=== PATIENT | female | born 1960 | race Caucasian/White ===

== ENCOUNTER 2019-10-31 15:36 | Outpatient (CLI) | payer OTHER, SELFPAY | END 2019-10-31 15:37 | disposition home or self-care (01) | PROVIDERS: PCP Family Medicine | DX: E03.9 Hypothyroidism, unspecified (principal) | CPT/HCPCS: 36415; 84443 ==

== ENCOUNTER 2020-08-06 11:57 | Inpatient (IN) | payer OTHER, SELFPAY ==
[2020-08-06] VITALS (11 sets, daily range): BP systolic 115–162; BP diastolic 59–95; PULSE 72–107; RESP 18–41; TEMP 36.4–38.3; O2SAT 69–94; BMI 43.3
--- NOTE | ~2020-08-06 | XR_ITS ---
XR chest 1V portable 08/13/2020 08:26 Indication: Covid. Hypoxia. Procedure: AP portable chest Comparison: Comparison to multiple prior studies sequentially, with oldest reviewed study date2014. Findings: Heart size normal. Diffuse bilateral airspace disease. No significant change. No significan t effusion or pneumothorax. No acute osseous abnormality. Impression: 1: Stable diffuse bilateral airspace disease which may represent pneumonia or edema. Reviewed, dictated and finalized at location A. N DRIVER Impression: 1: Stable diffuse bilateral airspace disease which may represent pneumonia or e corrine.
--- NOTE | ~2020-08-06 | XR_ITS ---
XR chest 1V portable 08/11/2020 06:14 Indication: Respiratory failure. Procedure: AP portable chest Comparison: 08/08/2019 Findings: Heart size normal. Diffuse bilateral airspace disease unchanged. No pleural effusion or pne umothorax. No acute osseous abnormality. Impression: 1: Diffuse bilateral airspace disease, consistent with pneumonia versus edema. Reviewed, dictated and finalized at location A. SEALER Impression: 1: Diffuse bilateral airspace disease, consistent with pneumonia versus edema.
--- NOTE | ~2020-08-06 | XR_ITS ---
EXAMINATION: XR chest 1V portable EXAM DATE: 08/06/2020 12:48 INDICATION: Shortness of air. TECHNIQUE: Portable AP frontal chest x-ray was obtained. Comparison is made to prior examination from 01/29/2015. FINDINGS: Moderate to large amount of bilateral ill-defined acute airspace disease, most likely COVID pneumonia given community prevalence. Mild cardiomegaly. There is no pneumothorax suspected. There a re no pleural effusions. There are no osseous abnormalities identified. IMPRESSION: Moderate to large amount of acute airspace disease suspicious for COVID pneumonia. Reviewed, dictated and finalized at location B. ER MARKER AXLE IMPRESSION: Moderate to large amount of acute airspace disease suspicious for C OVID pneumonia.
--- NOTE | ~2020-08-06 | XR_ITS ---
EXAMINATION: XR chest 1V portable DATE: 08/08/2020 11:03 INDICATION: COVID positive. Shortness of breath. TECHNIQUE: frontal view of the chest was obtained. COMPARISON: Chest radiograph dated 08/06/2020 FINDINGS: Similar distribution but increasing density of extensive bilateral airspace opacities relatively spar ing the left upper lung zone. No pleural effusion or pneumothorax. Mild cardiomegaly. Surgical clips at the left breast. IMPRESSION: 1. Increase in extensive diffuse bilateral lung disease which is concerning for worsening COVID pneum onia. Differential includes less likely pulmonary edema. 2. Mild cardiomegaly. Reviewed, dictated and finalized at location A. IBILITY COUNSELOR IMPRESSION: 1. Increase in extensive diffuse bilateral lung disease which is concerning for worsening COVID pneumonia. Differential includes less likely pulmonary edema. 2. Mild cardiomegaly.
--- NOTE | ~2020-08-06 | XR_ITS ---
EXAMINATION: XR chest PICC line DATE: 08/14/2020 14:51 INDICATION: Central line placement. COVID-19 pneumonia. TECHNIQUE: A single frontal view of the chest was obtained. COMPARISON: Chest single view 08/13/2020, 08/06/2020 FINDINGS: There are airspace and interstitial opacities throughout the lungs bilaterally with relativ e sparing of left lung apex. No pleural effusion or pneumothorax. The heart size is normal. A right u pper extremity peripherally inserted central venous catheter (PICC) is seen with tip at the superior cavoatrial junction. Surgical clips overlie left breast. IMPRESSION: 1. PICC tip at the superior cavoatrial junction. 2. Stable diffuse lung disease, consistent with pneumonia versus pulmonary edema. Reviewed, dictated and finalized at location A. MECHANIC IMPRESSION: 1. PICC tip at the superior cavoatrial junction. 2. Stable diffuse lung disease, consistent with pneumonia versus pulmonary thao a.
--- NOTE | 2020-08-06 12:21 | ECG_ITS ---
Measurements Intervals [place] Rate: 108 P: 29 NV: 127 QRS: -17 QRSD: 91 T: 23 QT: 298 QTc: 400 Interpretive Statements SINUS TACHYCARDIA INCOMPLETE RIGHT BUNDLE BRANCH BLOCK ANTEROSEPTAL INFARCT, AGE INDETERMINATE BASELINE ARTIFACT- III ABNORMAL ECG Electronically Signed On 08-06-2020 14:30:20 LOOPER OPERATOR by Carlos Gutiérrez D.O.
--- NOTE | 2020-08-06 12:33 | PC.NURSE ---
Patient is left arm limb alert, pink bracelet placed on left arm.
--- NOTE | 2020-08-06 12:36 | ED.SOB ---
HPI - SOB/Dyspnea General Chief Complaint: Shortness of Breath/Dyspnea Stated Complaint: nausea Time Seen by Provider: 08/06/20 12:08 History of Present Illness HPI Narrative: Patient is a 60-year-old female who presents ER with increasing shortness of breath over the last week. Patient reports she went to [facility] and had a Covid swab performed on 08/02/2020. She works in a [employer] unit. Patient is confused and slow to respond. She is oriented x2. She was hypoxic in the 60s and is now on 6 L nasal cannula. She reports she has been having fever and weakness over the last week. She is unsure when the symptoms started. Related Data Home Medications Medication Instructions Recorded Confirmed levothyroxine 75 mcg tablet 75 mcg PO DAILY 01/08/20 08/06/20 esomeprazole magnesium 20 mg 20 mg PO DAILY 07/24/20 08/06/20 capsule,delayed release cholecalciferol (vitamin D3) 1,250 mcg PO WEEKLY 08/06/20 08/06/20 Allergies Allergy/AdvReac Type Severity Reaction Status Date / Time Gadolinium-Containing Allergy Unknown Bradycardia Verified 08/06/20 13:35 Contrast Medi wasps AdvReac Severe Difficulty Uncoded 07/24/20 11:16 Swallowing Review of Systems Review of Systems: ROS unobtainable: Yes unobtainable due to mental status PMFSH Past Medical History Medical History Cancer of left breast Status post lumpectomy. Gastroesophageal reflux disease Hypothyroidism Lichen sclerosus et atrophicus Mitral valve prolapse Surgical History Surgical History History of ankle surgery History of lumpectomy of left breast Family History Family History Father Hypertension Mother Family history of Alzheimer's disease Other Family history of malignant neoplasm of breast Social History Social History Social History: The patient lives alone in [place]. She has no children. 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 She is a former smoker and quit in 2012. She drinks alcohol socially and in moderation. No illicit substance use. She designates her brother Bharat Mancuso as her surrogate decision maker and she wishes to be a full code. Smoking packs per day: 0.5 Smoking cigarettes per day: 10.0 Years smoked: 20 Smoking pack-years: 10.00 Smoking status: Former smoker Smoking end date: 08/08/12 Alcohol intake: current Substance use: never Gender identity (if verbalized by the patient): Female Spiritual care concerns: No Exam Narrative: Exam Narrative: GENERAL: ill-appearing, well-nourished, and in mild distress. HEAD: Normocephalic, atraumatic. EYES: PERRL and EOMI. CHEST: Diffuse crackles with increase respiratory rate. HEART: Tachycardic and regular. Normal peripheral pulses. ABDOMEN: Soft, nontender, nondistended. EXTREMITIES: Normal range of motion. No edema. SKIN: Warm, dry, no rash, mottling in lower extremitites. NEURO: Alert and oriented x2. Course Course Emergency Course: Admit to hospitalist service. Will swab for Covid. Outside records show that patient's Covid swab was canceled. Will start on dexamethasone. Patient may be candidate for remdesivir and hospitalist service will evaluate. Vital Signs Vital signs: Vital Signs Temperature 100.1 F H 08/06/20 12:16 Pulse Rate 106 H 08/06/20 12:16 Respiratory Rate 30 H 08/06/20 12:16 Blood Pressure 118/80 08/06/20 12:16 Pulse Oximetry 69 L 08/06/20 12:16 Temperature 97.7 F 08/08/20 16:00 Pulse Rate 105 H 08/08/20 16:04 Respiratory Rate 25 H 08/08/20 16:04 Blood Pressure 143/78 H 08/08/20 16:00 Pulse Oximetry 97 08/08/20 16:00 MDM - SOB/Dyspnea Lab Data Result diagrams: 08/08/20 09:44 08/08/20 03:27 Labs: Lab Results 1
[2020-08-06 12:43] LABS: Alveolar/Arterial O2 Gradient 221.1 mmHg; Base Excess ABG 0.8 mEq/l (+/-2.0); Carboxyhemoglobin 0.9 % THb (0-2.0); Device NASAL CANNULA; Fractional Inspired Oxygen 44 %; HCO3 ABG 23.7 mEq/l (22.0-26.0); Methemoglobin ABG 0.2 %THb (0-1.5); Modified Allen's Test Pass; Oxygen Content ABG 17.2 %vol (16.0-22.0); Oxygen Saturation ABG 91.1 % (95.0-100.0); Oxyhemoglobin 88.9 % THb (90.0-100.0); PCO2 ABG 32.7 mmHg (35.0-45.0); PO2 ABG 55.3 mmHg (80.0-100.0); PO2 FiO2 Ratio Arterial Blood 1.26 %; Site Drawn LEFT RADIAL; Total Hemoglobin 13.8 g/dL (12.0-18.0); pH ABG 7.478 (7.350-7.450)
[2020-08-06 12:47] LABS: Hemoglobin 14.1 g/dL (12.0-15.0); Immature Granulocyte Absolute 0.02 K/mm3 (0.00-0.031); Immature Granulocyte Percent A 0.4 % (0-0.5); Lymphocytes Absolute Auto 0.71 K/mm3 (0.9-3.2); Lymphocytes Percent Auto 14.9 % (18.3-44.2); Mean Corpuscular HGB Conc 34.4 g/dl (32-36); Mean Corpuscular Hemoglobin 30.9 pg (26-34); Mean Corpuscular Volume 89.9 fl (80-100); Mean Platelet Volume 10.6 fl (7.4-10.4); Monocytes Absolute Auto 0.2 K/mm3 (0.1-0.6); Neutrophils Absolute Auto 3.8 K/mm3 (1.3-6.7); Neutrophils Percent Auto 79.7 % (45.5-73.1); Platelet Count Result 202 k/mm3 (150-375); Red Blood Count 4.56 M/mm3 (4.2-5.4); Red Cell Distribution Width 12.9 % (11.5-14.5); White Blood Count 4.8 K/mm3 (4.5-10.0)
[2020-08-06 12:56] LABS: INR 0.9; Prothrombin Time 12.9 Seconds (11.1-14.7)
[2020-08-06 12:57] LABS: Partial Thromboplastin Time 33.3 SECONDS (22.3-36.8)
[2020-08-06 13:00] LABS: Lactic Acid Reflex 1.4 mmol/L (0.7-2.1)
[2020-08-06 13:10] LABS: Alanine Aminotransferase 27 U/L (4-35); Albumin Level 3.9 g/dL (3.5-5.1); Alkaline Phosphatase 113 U/L (38-126); Anion Gap 10 mmol/L (8-16); Aspartate Amino Transferase 77 U/L (14-36); Bilirubin,Total 0.5 mg/dL (0.2-1.3); Blood Urea Nitrogen 17 mg/dL (7-17); Calcium 8.8 mg/dL (8.4-10.2); Carbon Dioxide 28 mmol/L (22-30); Chloride 96 mmol/L (98-107); Estimated CRCL calculation 62 ml/min; Estimated Glomerular Filt Rate 57; Glucose 111 mg/dL (65-105); Sodium 134 mmol/L (137-145)
[2020-08-06 13:13] LABS: CRP 24.3 mg/dL (<1.0)
[2020-08-06] MEDS: DEXAMETHASONE SOD PHOS INJ 4 MG/ML VIAL 6 MG IV PUSH (13:34)
--- NOTE | 2020-08-06 14:53 | PC.NURSE ---
pt noted to have dry oral cavity and lips, oral care provided. drink given
--- NOTE | 2020-08-06 17:17 | ADMGEN ---
This patient, Julieta Mancuso, was admitted to IMU Room 212-. Patient/family oriented to hospital policies and general routines including ID bracelet, bed and alarms, visiting hours, pain management, procedures, bathroom and other care routines, personal items, smoking policy, room service/diet, and visiting hours. Information on how to activate the Rapid Response Team has been discussed. Patient/Family are encouraged to report perceived risks to care and to ask questions if they do not understand what they are told or what they should do.
--- NOTE | 2020-08-06 18:00 | PM.IMHP ---
H&P: HPI History of Present Illness Date/Time: 08/06/20 18:00 <Jennifer Connelly PA-C - Last Filed: 08/06/20 23:12> Chief Complaint: Shortness of breath. <Jennifer Connelly PA-C - Last Filed: 08/06/20 23:12> Narrative: Julieta Mancuso is a 60-year-old female with hypothyroidism and GERD who presented to the emergency department earlier today via private vehicle from home with complaints of worsening shortness of breath. At the time my evaluation she is a bit confused and slow to respond but from what I can gather she has not been feeling well for at least a week with symptoms to include cough, congestion, shortness of breath, fever, chills, arthralgias, myalgias, headache, nausea, vomiting, and diarrhea. It sounds as though she has been home in bed for many days, not eating much or drinking and taking acetaminophen and ibuprofen for her symptoms. Her brother has been coming to check on her and has encouraged her to come to the hospital last couple of days however she has refused up until today. On arrival to the emergency department her SpO2 was 75% on room air, skin was reportedly mottled, and her chest x-ray showed pretty extensive bilateral lung disease yet she tells me she was not feeling short of breath. 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 She does not believe she has been using adequate PPE as she typically wears just a surgical mass while working at that facility. <Jennifer Connelly PA-C - Last Filed: 08/06/20 23:12> Review of Systems Review of Systems: Narrative: Twelve systems were reviewed and are negative except for as per HPI. <Jennifer Connelly PA-C - Last Filed: 08/06/20 23:12> [facility] Past Medical History Medical History: Medical History Cancer of left breast Status post lumpectomy. Gastroesophageal reflux disease Hypothyroidism Lichen sclerosus et atrophicus Mitral valve prolapse <GISSELL [place] Last Filed: 08/06/20 23:12> Surgical History Surgical History: Surgical History History of ankle surgery History of lumpectomy of left breast <Jennifer Connelly PA-C - Last Filed: 08/06/20 23:12> Family History Family History: Family History Father Hypertension Mother Family history of Alzheimer's disease Other Family history of malignant neoplasm of breast <Jennifer Connelly PA-C - Last Filed: 08/06/20 23:12> Social History Social History: Social History Social History: The patient lives alone in [place]. She has no children. 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 She is a former smoker and quit in 2012. She drinks alcohol socially and in moderation. No illicit substance use. She designates her brother Bharat Mancuso as her surrogate decision maker and she wishes to be a full code. Smoking packs per day: 0.5 Smoking cigarettes per day: 10.0 Years smoked: 20 Smoking pack-years: 10.00 Smoking status: Former smoker Smoking end date: 08/08/12 Alcohol intake: current Substance use: never Gender identity (if verbalized by the patient): Female Spiritual care concerns: No <Jennifer Connelly PA-C - Last Filed: 08/06/20 23:12> Meds Home Medications and Allergies Home medications: Home Medications Medication Instructions Recorded Confirmed Type levothyroxine 75 mcg tablet 75 mcg PO DAILY 01/08/20 08/06/20 History esomeprazole magnesium 20 mg 20 mg PO DAILY 07/24/20 08/06/20 History capsule,delayed release triamcinolone acetonide 0.5 % 1 applic TOPICAL BID PRN #15 g 07/24/20 08/06/20 Rx topical ointment cholecalciferol (vitamin D3) 1,250 mcg PO WEEKLY 1
[2020-08-06 22:09] LABS: SARS-CoV-2 RNA PCR Positive
--- NOTE | 2020-08-06 23:12 | P.PNCROSS_ITS ---
Event Note Event Note Event Note: Positive for COVID-19. Antibiotics have been discontinued. Contin ue dexamethasone. Begin remdesivir.
[2020-08-06 23:27] LABS: Alanine Aminotransferase 27 U/L (4-35); Creatine Kinase 621 U/L (30-135)
[2020-08-06] MEDS: REMDESIVIR 200 MG/NS 250 ML 200 MG/250 ML BAG 250 MG IVPB (23:56)
[2020-08-07] VITALS (24 sets, daily range): BP systolic 131–150; BP diastolic 68–83; PULSE 66–86; RESP 20–24; TEMP 36.5–36.9; O2SAT 22–100
[2020-08-07] MEDS: ALBUTEROL SULFATE NEB 2.5 MG/0.5 ML INH INHALATION ×6 (00:59→21:11)
[2020-08-07] MEDS: IPRATROPIUM BR 0.02% INH SOLN 0.5 MG/2.5 ML VIAL INHALATION ×5 (04:23→21:11)
--- NOTE | 2020-08-07 05:19 | PC.NURSE ---
PATIENT WAS IN BED AND SOAKED AND STATED THAT SHE STILL NEEDED TO URINATE AND WANTED TO GET UP. WE GOT HER UP TO BEDSIDE COMMODE. PATIENT WAS ON 15L HIGH-FLOW NC AT THE TIME. PATIENTS BED WAS CHANGED AND PATIENT CLEANED UP. DURING THIS TIME PATIENTS O2 LEVEL DECREASED INTO THE 60'S AND SHE STARTED TO MOTTLE UP TO WAIST. PATIENT WAS ENCOURAGED TO GET BACK TO BED AND LIE DOWN ON SIDE OR PRONE. PATIENT DOESN'T SEEM TO LIKE PRONE BUT WILL LIE ON HER SIDE. SHE HAD A VERY DIFFICULT TIME RECOVERING FROM THIS EPISODE. IT WAS EXPLAINED TO HER THAT HER BODY IS REQUIRING MORE O2 WHEN SHE EXERTS HERSELF. DR ELIZABETH IS AWARE. PATIENT IS NOW ON 15L HIGH-CELIA NC AND NON-REBREATHER. PATIENT IS STILL HAVING A DIFFICULT TIME RECOVERING. WILL CONTINUE TO MONITOR.
[2020-08-07 05:34] LABS: Add Urine Microscopic? YES; Appearance Urine Clear (Clear); Bacteria Urine Trace /hpf; Bilirubin Urine Negative (Negative); Blood Urine Negative (Negative); Color Urine Yellow (Yellow); Glucose Urine UA Negative (Negative); Ketones Urine Negative (Negative); Leukocyte Esterase Ur Negative LEU/UL (Negative); Mucus Urine Rare /lpf; Nitrate Urine Negative (Negative); Protein Urine 2+ mg/dL (Negative); RBC Urine 0-2 /hpf (0-2); Specific Grav Ur 1.023 (1.001-1.035); Squamous Epithelial Cell Urine Few /hpf (Few); Urobilinogen Urine Negative mg/dL (<2.0); WBC Urine 0-3 /hpf
[2020-08-07] MEDS: LEVOTHYROXINE SODIUM 75 MCG TABLET PO (06:27)
[2020-08-07 06:33] LABS: Alveolar/Arterial O2 Gradient 477.5 mmHg; Base Excess ABG 1.5 mEq/l (+/-2.0); Carboxyhemoglobin 0.3 % THb (0-2.0); Fractional Inspired Oxygen 85 %; HCO3 ABG 26.5 mEq/l (22.0-26.0); Methemoglobin ABG 0.2 %THb (0-1.5); Oxygen Content ABG 17.9 %vol (16.0-22.0); Oxygen Saturation ABG 96.3 % (95.0-100.0); Oxyhemoglobin 94.9 % THb (90.0-100.0); PCO2 ABG 43.2 mmHg (35.0-45.0); PO2 ABG 83.7 mmHg (80.0-100.0); PO2 FiO2 Ratio Arterial Blood 0.98 %; Reduced Hemoglobin 4.6 %THb (0-5.0); Total Hemoglobin 13.4 g/dL (12.0-18.0); pH ABG 7.406 (7.350-7.450)
[2020-08-07 06:34] LABS: Modified Allen's Test Pass; Site Drawn RIGHT RADIAL
[2020-08-07 06:35] LABS: Device HIGH FLOW THERAPY
[2020-08-07 08:36] LABS: Hematocrit 43.6 % (37.0-47.0); Hemoglobin 14.2 g/dL (12.0-15.0); Mean Corpuscular HGB Conc 32.6 g/dl (32-36); Mean Corpuscular Hemoglobin 30.7 pg (26-34); Mean Corpuscular Volume 94.2 fl (80-100); Mean Platelet Volume 10.3 fl (7.4-10.4); Platelet Count Result 180 k/mm3 (150-375); Red Blood Count 4.63 M/mm3 (4.2-5.4); Red Cell Distribution Width 13.1 % (11.5-14.5); White Blood Count 5.5 K/mm3 (4.5-10.0)
[2020-08-07 09:27] LABS: Alanine Aminotransferase 27 U/L (4-35); Albumin Level 3.3 g/dL (3.5-5.1); Alkaline Phosphatase 103 U/L (38-126); Anion Gap 11 mmol/L (8-16); Aspartate Amino Transferase 68 U/L (14-36); Bilirubin,Total 0.5 mg/dL (0.2-1.3); Blood Urea Nitrogen 18 mg/dL (7-17); Calcium 8.7 mg/dL (8.4-10.2); Carbon Dioxide 23 mmol/L (22-30); Chloride 103 mmol/L (98-107); Estimated CRCL calculation 107 ml/min; Estimated Glomerular Filt Rate > 60; Glucose 139 mg/dL (65-105); Magnesium 2.6 mg/dL (1.6-2.3); Potassium 4.8 mmol/L (3.4-5.0); Sodium 137 mmol/L (137-145)
[2020-08-07 09:53] LABS: Thyroid Stimulating Hormone Reflex 0.927 uIU/mL (0.465-4.68)
--- NOTE | 2020-08-07 10:44 | PM.CNPUL ---
Assessment and Plan Additional Plan COVID pneumonia. Stable. Relative hypoxia at baseline but ABG today substantially better reflecting O2 use. Rx as above. Following. 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 History of ankle and leg fractures and associated surgeries as well as left breast CA requiring surgery, radiation, and chemotherapy -fortunately VIANEY since then (2005). COVID testing past few days positive but she cannot clarify that. Denies baseline respiratory disease. Denies dyspnea but has some mild cough. [facility] Past Medical History Medical History Cancer of left breast Status post lumpectomy. Gastroesophageal reflux disease Hypothyroidism Lichen sclerosus et atrophicus Mitral valve prolapse Surgical History Surgical History History of ankle surgery History of lumpectomy of left breast Family History Family History Father Hypertension Mother Family history of Alzheimer's disease Other Family history of malignant neoplasm of breast Social History Social History Social History: The patient lives alone in [place]. She has no children. 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 She is a former smoker and quit in 2012. She drinks alcohol socially and in moderation. No illicit substance use. She designates her brother Bharat Mancuso as her surrogate decision maker and she wishes to be a full code. Smoking packs per day: 0.5 Smoking cigarettes per day: 10.0 Years smoked: 20 Smoking pack-years: 10.00 Smoking status: Former smoker Smoking end date: 08/08/12 Alcohol intake: current Substance use: never Gender identity (if verbalized by the patient): Female Spiritual care concerns: No Meds Home Medications and Allergies Home Medications Medication Instructions Recorded Confirmed Type levothyroxine 75 mcg tablet 75 mcg PO DAILY 01/08/20 08/06/20 History esomeprazole magnesium 20 mg 20 mg PO DAILY 07/24/20 08/06/20 History capsule,delayed release triamcinolone acetonide 0.5 % 1 applic TOPICAL BID PRN #15 g 07/24/20 08/06/20 Rx topical ointment cholecalciferol (vitamin D3) 1,250 mcg PO WEEKLY 08/06/20 08/06/20 History Allergies Allergy/AdvReac Type Severity Reaction Status Date / Time Gadolinium-Containing Allergy Unknown Bradycardia Verified 08/06/20 13:35 Contrast Medi wasps AdvReac Severe Difficulty Uncoded 07/24/20 11:16 Swallowing Vital Signs Vital Signs - 24 hr 08/06/20 12:16 08/06/20 12:30 08/06/20 13:34 Temperature 37.8 C H 38.3 C H Pulse Rate 106 H 107 H 92 Respiratory Rate 30 H 41 H 20 Blood Pressure 118/80 162/95 H 118/59 L Pulse Oximetry 69 L 92 94 08/06/20 14:52 08/06/20 15:42 08/06/20 16:00 Temperature 36.6 C Pulse Rate 82 78 82 Respiratory Rate 28 H 25 H 22 H Blood Pressure 115/59 L 132/59 L 123/62 Pulse Oximetry 94 94 90 08/06/20 18:00 08/06/20 19:51 08/06/20 20:00 Temperature 36.6 C Pulse Rate 75 79 79 Respiratory Rate 18 18 Blood Pressure 143/66 H Pulse Oximetry 91 91 08/06/20 22:00 08/06/20 23:38 08/07/20 00:00 Temperature 36.4 C Pulse Rate 72 72 70 Respiratory Rate 22 H 22 H Blood Pressure 131/61 Pulse Oximetry 92 92 08/07/20 00:59 08/07/20 01:01 08/07/20 02:00 Temperature Pulse Rate 66 66 69 Respiratory Rate 20 20 Blood Pressure Pulse Oximetry 100 08/07/20 04:00 08/07/20 04:23 08/07/20 05:26 Temperature 36.6 C Pulse Rate 77 76 82 Respiratory Rate 22 H 20 20 Blood Pressure 150/83 H Pulse Oximetry 22 L 95 08/07/20 06:00 08/07/20 07:39 08/07/20 07:59 Temper
[2020-08-07] MEDS: PANTOPRAZOLE 40 MG TABLET PO (11:32)
[2020-08-07] MEDS: ENOXAPARIN 40 MG/0.4 ML SYRINGE SUB-Q (11:32)
[2020-08-07] MEDS: ERGOCALCIFEROL 50,000 UNIT CAPSULE 50000 UNITS PO (11:32)
[2020-08-07] MEDS: DEXAMETHASONE SOD PHOS INJ 4 MG/ML VIAL 6 MG IV PUSH (11:32)
[2020-08-07 13:57] LABS: CRP 23.1 mg/dL (<1.0)
[2020-08-07 13:58] LABS: Lactate Dehydrogenase 2119 U/L (313-618)
--- NOTE | 2020-08-07 16:00 | PM.IMPN ---
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 (2) Suspected COVID-19 virus infection: Code(s): Z20.828 - Contact with and (suspected) exposure to other viral communicable diseases Status: Acute Assessment and Plan: plan is above (3) Bilateral pneumonia: Code(s): J18.9 - Pneumonia, unspecified organism Status: Acute Assessment and Plan: Most likely viral COVID pneumonia (4) Gastroesophageal reflux disease: Code(s): K21.9 - Gastro-esophageal reflux disease without esophagitis Status: Inactive Assessment and Plan: Will continue PPI (5) Hypothyroidism: Code(s): E03.9 - Hypothyroidism, unspecified Status: Acute Assessment and Plan: home regimen (6) Confusion: Code(s): R41.0 - Disorientation, unspecified Status: Acute Assessment and Plan: Patient clinically stable currently Additional Plan The patient has been admitted to the hospitalist service with acute respiratory failure with hypoxia secondary to extensive bilateral pneumonia, most likely COVID-19. She is quite ill and has been admitted to the IMU for closer monitoring. She has been started on dexamethasone but will hold on adding remdesivir, pending SARs CoV-2 by PCR. I am also going to start her on empiric antibiotics for possible bacterial pneumonia until her swab comes back. Continue contact, airborne, and droplet isolation. while she is alert and oriented x4 she has delay in her thought process and speech and is not at her baseline. Most likely related to infection and hypoxia; no focal deficits on exam. Her vital signs and labs were reviewed. Home medications will be reviewed and resumed as appropriate. 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 Review of Systems Review of Systems: All systems reviewed & are unremarkable except as noted in HPI and below Exam Narrative: Exam Narrative: Morbidly obese Patient is comfortable, NAD HEENT: eyes are clear and none icteric LUNGS: Bilateral fair air entry with rhonchi HEART: RR S1S2 ABD: Obese Lower extremities: no edema SKIN: nonjaundiced Neuro: grossly intact normal speech. Objective Data Vital Signs Vital Signs: Vital Signs - 24 hr 08/06/20 18:00 08/06/20 19:51 08/06/20 20:00 Temperature 97.9 F Pulse Rate 75 79 79 Respiratory Rate 18 18 Blood Pressure 143/66 H Pulse Oximetry 91 91 08/06/20 22:00 08/06/20 23:38 08/07/20 00:00 Temperature 97.6 F Pulse Rate 72 72 70 Respiratory Rate 22 H 22 H Blood Pressure 131/61 Pulse Oximetry 92 92 08/07/20 00:59 08/07/20 01:01 08/07/20 02:00 Temperature Pulse Rate 66 66 69 Respiratory Rate 20 20 Blood Pressure Pulse Oximetry 100 08/07/20 04:00 08/07/20 04:23 08/07/20 05:26 Temperature 97.8 F
[2020-08-07] MEDS: REMDESIVIR 100 MG/NS 250 ML 100 MG/250 ML BAG 250 MG IVPB (22:38)
[2020-08-07] MEDS: ACETAMINOPHEN 325 MG TABLET 650 MG PO (23:44)
[2020-08-08] VITALS (35 sets, daily range): BP systolic 134–156; BP diastolic 72–95; PULSE 59–143; RESP 14–30; TEMP 35.8–36.6; O2SAT 86–100
[2020-08-08] MEDS: ALBUTEROL SULFATE NEB 2.5 MG/0.5 ML INH INHALATION ×6 (00:40→21:02)
[2020-08-08] MEDS: IPRATROPIUM BR 0.02% INH SOLN 0.5 MG/2.5 ML VIAL INHALATION ×6 (00:40→21:02)
[2020-08-08 04:23] LABS: Alanine Aminotransferase 32 U/L (4-35)
[2020-08-08] MEDS: LEVOTHYROXINE SODIUM 75 MCG TABLET PO (06:55)
--- NOTE | 2020-08-08 07:06 | ECG_ITS ---
Measurements Intervals [place] Rate: 94 P: [place]: 0 QRS: -9 QRSD: 101 T: 9 QT: 351 QTc: 441 Interpretive Statements ATRIAL FIBRILLATION LOW QRS VOLTAGE IN PRECORDIAL LEADS INCOMPLETE RIGHT BUNDLE BRANCH BLOCK CANNOT RULE OUT SEPTAL INFARCT, AGE INDETERMINATE BORDERLINE T WAVE ABNORMALITY- INFERIOR LEADS BASELINE ARTIFACT- I, II, III, AVR, AVL, AVF ABNORMAL ECG Electronically Signed On 08-08-2020 8:15:06 WRAPPING CHECKER by Carlos Gutéirrez D.O.
[2020-08-08 08:57] LABS: Alanine Aminotransferase 33 U/L (4-35); Albumin Level 3.5 g/dL (3.5-5.1); Alkaline Phosphatase 106 U/L (38-126); Anion Gap 5 mmol/L (8-16); Aspartate Amino Transferase 65 U/L (14-36); Bilirubin,Total 0.3 mg/dL (0.2-1.3); Blood Urea Nitrogen 24 mg/dL (7-17); CRP 13.3 mg/dL (<1.0); Calcium 9.1 mg/dL (8.4-10.2); Carbon Dioxide 33 mmol/L (22-30); Chloride 99 mmol/L (98-107); Estimated CRCL calculation 82 ml/min; Estimated Glomerular Filt Rate > 60; Glucose 155 mg/dL (65-105); Magnesium 2.6 mg/dL (1.6-2.3); Potassium 4.6 mmol/L (3.4-5.0); Sodium 137 mmol/L (137-145)
[2020-08-08] MEDS: PANTOPRAZOLE 40 MG TABLET PO (09:10)
[2020-08-08] MEDS: ENOXAPARIN 40 MG/0.4 ML SYRINGE SUB-Q (09:10)
[2020-08-08] MEDS: DEXAMETHASONE SOD PHOS INJ 4 MG/ML VIAL 6 MG IV PUSH (09:10)
[2020-08-08 09:56] LABS: Basophils Percent Auto 0.1 % (0.2-1.2); Hematocrit 40.4 % (37.0-47.0); Hemoglobin 13.6 g/dL (12.0-15.0); Immature Granulocyte Absolute 0.04 K/mm3 (0.00-0.031); Immature Granulocyte Percent A 0.5 % (0-0.5); Lymphocytes Absolute Auto 0.72 K/mm3 (0.9-3.2); Lymphocytes Percent Auto 9.3 % (18.3-44.2); Mean Corpuscular HGB Conc 33.7 g/dl (32-36); Mean Corpuscular Hemoglobin 30.8 pg (26-34); Mean Corpuscular Volume 91.4 fl (80-100); Mean Platelet Volume 10.3 fl (7.4-10.4); Monocytes Absolute Auto 0.4 K/mm3 (0.1-0.6); Monocytes Percent Auto 4.8 % (2.6-8.5); Neutrophils Absolute Auto 6.6 K/mm3 (1.3-6.7); Neutrophils Percent Auto 85.3 % (45.5-73.1); Platelet Count Result 241 k/mm3 (150-375); Red Blood Count 4.42 M/mm3 (4.2-5.4); Red Cell Distribution Width 12.9 % (11.5-14.5); White Blood Count 7.7 K/mm3 (4.5-10.0)
--- NOTE | 2020-08-08 10:19 | PM.CNCAR ---
Assessment and Plan Assessment and plan (1) Atrial fibrillation with rapid ventricular response: Code(s): I48.91 - Unspecified atrial fibrillation Status: Acute Assessment and Plan: New onset at 0655 this AM in setting of COVID-19 infection with bilateral pneumonia and hypoxic respiratory failure. No prior known history, patient unaware heart rate 120-150 beats per minute. CHADS2 Vasc score 1. Technically, ASA 325 mg daily acceptable, however, unclear if patient may require cardioversion in near future. Furthermore, in setting of COVID-19 infection and thromboembolic risk systemic anticoagulation is not unreasonable. Enoxaparin 1 milligram/kilogram subcutaneous q.12 hours. -patient is hemodynamically stable and not in acute decompensated CHF at present. Monitor volume status. -rate control strategy initially. IV metoprolol 5 mg Q 6 hour. Monitor response. If heart rate poorly controlled and/or hypotensive, amiodarone an option for rate control. -Check Trop I -2D Echo eventually but unlikely to significantly change our management at present unless hemodynamic compromise and/or CHF. (2) COVID-19: Code(s): U07.1 - COVID-19 Status: Acute Assessment and Plan: Per primary service. Complicated by COVID pneumonia with extensive bilateral infiltrates Patient remains hypoxic despite non-rebreather. Serious concern for further deterioration of respiratory status requiring intubation mechanical ventilatory support. Remdesivir and dexamethasone have been ordered by primary service. Significant elevation in acute phase reactants; LDH 2119, CRP initially very high 23.1, repeat 13.3, ferritin 712. D-Dimer not obtained. Patient is critically ill. If any further deterioration transfer to ICU. (3) Acute respiratory failure with hypoxia: Code(s): J96.01 - Acute respiratory failure with hypoxia Status: Acute Assessment and Plan: Secondary to COVID-19 pneumonia. Pulmonology has been consulted. BiPAP has been requested. If none no further stabilization and/or worsening hypoxia intubation may be required as oxygen saturations remained in the upper 80s to low 90s on 15 L. (4) Hypothyroidism: Code(s): E03.9 - Hypothyroidism, unspecified Status: Acute Assessment and Plan: Stable TSH 0.927 History of Present Illness History of Present Illness Consult date/time: Date of service: 08/08/20 10:19 Cardiology consultation at the request of Dr. 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 She was noted to be somewhat confused with slow response to questions initially and documented complaints of 1 week history of cough, congestion, shortness of breath, fevers, chills, myalgias/arthralgias, headache along with nausea, vomiting and diarrhea. For electronic record patient had been home in bed for several days, poor appetite taking [id number] analgesics. Apparently, patient was encouraged to present to the hospital refused and feels August 06. She was noted to be hypoxic with oxygen saturations in mid 70s on room air a chest x-ray revealed extensive bilateral infiltrates. At her time presentation she denies shortness of breath and again denies this at this time. She denies chest pain, palpitations, lower extremity edema, bright red blood per rectum, melena, or lower extremity edema. I have been asked to see this patient as she developed atrial fibrillation with rapid ventricular response heart rat
[2020-08-08] MEDS: METOPROLOL TARTRATE INJ 5 MG/5 ML VIAL IV PUSH ×3 (10:28→23:05)
--- NOTE | 2020-08-08 11:03 | PM.PNPUL ---
Progress Note: A&P Additional Plan COVID pneumonia clinically worsening. Adding metoprolol for tachycardia. Following oxygenation carefully. Time Spent With Patient Time with patient: 25 - 35 minutes Subjective Date/time seen: 08/08/20 11:03 Oxygenation has declined overnight. Staff report she is ?refusing everything?, specifically Sena catheterization, prone positioning. Starting BiPAP now Exam Const: Other: Unhappy. She does not seem to get panic now, as we place BiPAP. Chest sounds clear. Again left anterior chest tenderness, rejecting auscultation there. Objective Data Vital Signs Vital Signs: Vital Signs - 24 hr 08/07/20 12:00 08/07/20 12:24 08/07/20 14:00 Temperature 36.9 C Pulse Rate 81 78 77 Respiratory Rate 20 20 Blood Pressure 142/77 H Pulse Oximetry 88 L 08/07/20 15:02 08/07/20 16:00 08/07/20 18:00 Temperature 36.9 C Pulse Rate 75 75 82 Respiratory Rate 20 24 H Blood Pressure 131/68 Pulse Oximetry 88 L 08/07/20 20:00 08/07/20 21:12 08/07/20 21:21 Temperature 36.7 C Pulse Rate 85 76 81 Respiratory Rate 22 H 20 20 Blood Pressure 140/76 Pulse Oximetry 95 95 08/07/20 22:00 08/07/20 23:52 08/08/20 00:00 Temperature 36.5 C Pulse Rate 80 81 79 Respiratory Rate 20 Blood Pressure 139/74 Pulse Oximetry 90 87 L 08/08/20 00:40 08/08/20 01:00 08/08/20 01:08 Temperature Pulse Rate 76 78 Respiratory Rate 20 20 Blood Pressure Pulse Oximetry 95 08/08/20 02:00 08/08/20 04:00 08/08/20 04:05 Temperature 36.6 C Pulse Rate 71 72 81 Respiratory Rate 20 20 Blood Pressure 156/83 H Pulse Oximetry 92 08/08/20 04:20 08/08/20 06:00 08/08/20 08:00 Temperature 36.6 C Pulse Rate 84 66 125 H Respiratory Rate 22 H 24 H Blood Pressure 155/95 H Pulse Oximetry 90 08/08/20 08:35 08/08/20 08:45 08/08/20 10:28 Temperature Pulse Rate 102 H 119 H 132 H Respiratory Rate 20 20 Blood Pressure Pulse Oximetry 93 Intake/Output Intake/Output: Intake & Output 08/05/20 08/06/20 08/07/20 08/08/20 23:59 23:59 23:59 23:59 Intake Total 640 860 600 Output Total 800 150 Balance 640 60 450 Meds/Results Medications: Active Medications Generic Name Dose Route Start Last Admin Trade Name Freq PRN Reason Stop Dose Admin Acetaminophen 650 mg 08/06/20 14:29 08/07/20 23:44 Acetaminophen 325 Mg Tablet PO 650 mg Q4H PRN Administration Mild Pain (1-3) or Fever Albuterol 2 puff 08/06/20 17:35 Albuterol Sulfate (*Sp) Aerosol 1 Puff INHALATION QIDRT PRN Shortness Of Breath Albuterol 2.5 mg 08/07/20 04:00 08/08/20 08:30 Albuterol Sulfate Neb 2.5 Mg/0.5 Ml Inh INHALATION 2.5 mg Q4HRT JAVED Administration Dexamethasone Sodium Phosphate 6 mg 08/07/20 09:00 08/08/20 09:10 Dexamethasone Sod Phos Inj 4 Mg/Ml Vial IV PUSH 08/16/20 09:01 6 mg DAILY [facility] Administration Enoxaparin Sodium 115 mg 08/08/20 21:00 Enoxaparin 120 Mg/0.8 Ml Syringe SUB-Q Q12HR [facility] Ergocalciferol 50,000 unit 08/07/20 09:00 08/07/20 11:32 Ergocalciferol 50,000 Unit Capsule PO 50,000 unit Th@0900 [facility] Administration Remdesivir 100 mg in 250 mls @ 250 mls/hr 08/07/20 22:00 08/07/20 22:38 IVPB 08/10/20 22:01 250 mls/hr Q24H [facility] Administration Ipratropium [place] 0.5 mg 08/07/20 04:00 08/08/20 08:30 Ipratropium Br 0.02% Inh Soln 0.5 Mg/2.5 Ml Vial INHALATION 0.5 mg Q4HRT [facility] Administration Levothyroxine Sodium 75 mcg 08/07/20 06:30 08/08/20 06:55 Levothyroxine Sodium 75 Mcg Tablet PO 75 mcg DAILY@0630 [facility] Administration Metoprolol Tartrate 5 mg 08/08/20 12:00 08/08/20 10:28 Metoprolol Tartrate Inj 5 Mg/5 Ml Vial IV PUSH 5 mg Q6HR JAVED Administration Ondansetron HCl 4 mg 08/06/20 14:29 Ondansetron Inj 4 Mg/2 Ml Vial IV PUSH Q4H PRN Nausea Pantoprazole Sodium 40 mg 08/07/20 09:00 08/08/20 09:10 Pantoprazole 40 Mg Tablet PO 40 mg
[2020-08-08 15:02] LABS: Alveolar/Arterial O2 Gradient 603.5 mmHg; Base Excess ABG 1.8 mEq/l (+/-2.0); Carboxyhemoglobin 0.3 % THb (0-2.0); Fractional Inspired Oxygen 100 %; HCO3 ABG 26.2 mEq/l (22.0-26.0); Methemoglobin ABG 0.3 %THb (0-1.5); Oxygen Content ABG 18.4 %vol (16.0-22.0); Oxygen Saturation ABG 94.4 % (95.0-100.0); Oxyhemoglobin 92.2 % THb (90.0-100.0); PCO2 ABG 40.3 mmHg (35.0-45.0); PO2 ABG 69.2 mmHg (80.0-100.0); PO2 FiO2 Ratio Arterial Blood 0.69 %; Reduced Hemoglobin 7.2 %THb (0-5.0); Total Hemoglobin 14.2 g/dL (12.0-18.0); pH ABG 7.431 (7.350-7.450)
[2020-08-08 15:03] LABS: Device NON-INVASIVE VENT; Modified Allen's Test Pass; Site Drawn RIGHT RADIAL
[2020-08-08 15:04] LABS: Non-Invasive Inspiratory Pressure 12 CMH2O; Non-Invasive Vent Rate 12 /MIN
[2020-08-08 15:05] LABS: Non-Invasive Expiratory Pressure 6 CMH2O
--- NOTE | 2020-08-08 16:01 | PC.NURSE ---
Administered 1200 dose of 5mg IV Metoprolol early for first time dose.
--- NOTE | 2020-08-08 16:03 | PM.IMPN ---
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, 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 and requiring 15 L of oxygen, patient was started on dexamethasone on 08/07 09/17, and Remdesivir 08/07 09/12, convalescent plasma is ordered for the patient as patient is more hypoxic on BIPAP, receiving Fio2 100%, also today patient went atrial fibrillation with RVR is a new onset for the patient seen by City Maintenance Manager, started patient on IV metoprolol 5mg q6, rate is trending down, Patient CHADS2-Vasc is 1 and full dose aspirin would be acceptable, Patient with COVID has high of clots, was started on Lovenox 1mg/kg q12, patient is seen by rental boats caretaker and further recommendation to follow. (2) Suspected COVID-19 virus infection: Code(s): Z20.828 - Contact with and (suspected) exposure to other viral communicable diseases Status: Acute Assessment and Plan: plan is above (3) Bilateral pneumonia: Code(s): J18.9 - Pneumonia, unspecified organism Status: Acute Assessment and Plan: Most likely viral COVID pneumonia (4) Gastroesophageal reflux disease: Code(s): K21.9 - Gastro-esophageal reflux disease without esophagitis Status: Inactive Assessment and Plan: Will continue PPI (5) Hypothyroidism: Code(s): E03.9 - Hypothyroidism, unspecified Status: Acute Assessment and Plan: home regimen (6) Confusion: Code(s): R41.0 - Disorientation, unspecified Status: Acute Assessment and Plan: Patient clinically stable currently Subjective Date/time seen: 08/08/20 16:03 Patient is a 60-year-old female presented to emergency department with complaint cough shortness of breath patient was diagnosed COVID-19 does not remember when exactly she was exposed, 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, 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 and requiring 15 L of oxygen, patient was started on dexamethasone on 08/07 09/17, and Remdesivir 08/07 09/12, convalescent plasma is ordered for the patient as patient is more hypoxic on BIPAP, receiving Fio2 100%, also today patient went atrial fibrillation with RVR is a new onset for the patient seen by City Maintenance Manager, started patient on IV metoprolol 5mg q6, rate is trending down, Patient CHADS2-Vasc is 1 and full dose aspirin would be acceptable, Patient with COVID has high of clots, was started on Lovenox 1mg/kg q12, patient is seen by rental boats caretaker and further recommendation to follow. Review of Systems Review of Systems: ROS unobtainable: Yes unobtainable due to medical condition Exam Narrative: Exam Narrative: Morbidly obese Patient is comfortable, NAD HEENT:on BIPAP LUNGS: Normal respiratory efforts ABD: Obese Lower extremities: no edema SKIN: nonjaundiced Neuro: on BIPAP. Objective Data Vital Signs Vital Signs: Vital Signs - 24 hr 08/07/20 18:00 08/07/20 20:00 08/07/20 21:12 Temperature 98.1 F Pulse Rate 82 85 76 Respiratory Rate 22 H 20 Blood Pressure 140/76 Pulse Oximetry 95 95 08/07/20 21:21 08/07/20 22:00 08/07/20 23:52 Temperature 97.7 F Pulse Rate 81 80 81 Respiratory Rate 20 20 Blood Pressure 139/74 Pulse Oximetry 90 08/08/20 00:00 08/08/20 00:40 08/08/20 01:00 Temperature Pulse Rate 79 76 78 Respiratory Rate 20 20 Blood Pressure Pulse Oximetry 87 L 08/08/20 01:08 08/08/20 02:00 08/08/20 04:00 Temperature 97.8 F Pulse Rate 71 72 Respiratory Rate 20 Blood Pressure 156/83 H Pulse Oximetry 95 92 08/08/20 04:05 08/08/20 04:20 08/08/20 06:00 [facility]
--- NOTE | 2020-08-08 17:21 | PC.NURSE ---
During my 1600 assessment of patient, the patient stated to the [employer] CCT and I that No one has been in here to adjust me or make me comfortable in over 8 hours, and I haven't eaten anything all day. . Patient was placed on Continuous BiPap at approximately 1030 this morning and does not have the physical capability to remain adequately oxygenated to eat a meal. Patient has also been assessed multiple times throughout the day, ice water provided during each assessment, and had a brooke catheter initiated at 1000 this morning with repositioning to her satisfaction. Both [employer] [facility] and myself have alternated hourly checks on the patient and assisted with repositioning as requested. Patient has been difficult to convince to cooperate with treatments and medications, while also being aggressive, rude and cursing at staff members. Physician aware of patient's aggression. Will continue to monitor.
[2020-08-08] MEDS: ENOXAPARIN 120 MG/0.8 ML SYRINGE 115 MG SUB-Q (20:09)
[2020-08-08] MEDS: ACETAMINOPHEN 325 MG TABLET 650 MG PO (20:09)
--- NOTE | 2020-08-08 21:31 | PC.NURSE ---
Verified plasma unit with Georgette Ellison RN at 2041. Did not take WOW into isolation room, started unit inside room at 2053 and waited 15 minutes. At return to wow to document begin time and 15 min vitals, verification had not saved. Had to scan to reverify, but timing is off, would not allow edit of verification time to reflect actual time.
[2020-08-08] MEDS: SODIUM CHLORIDE 0.9% IV 250 ML 30 ML IV CONT (21:48)
[2020-08-08] MEDS: TUBING, BLOOD PLUM PUMP TUBING 1 EACH XX (21:49)
[2020-08-08] MEDS: REMDESIVIR 100 MG/NS 250 ML 100 MG/250 ML BAG 250 MG IVPB (21:55)
[2020-08-09] VITALS (31 sets, daily range): BP systolic 120–153; BP diastolic 68–98; PULSE 82–120; RESP 19–32; TEMP 36.1–36.5; O2SAT 88–100
[2020-08-09] MEDS: IPRATROPIUM BR 0.02% INH SOLN 0.5 MG/2.5 ML VIAL INHALATION ×5 (01:00→21:49)
[2020-08-09] MEDS: ALBUTEROL SULFATE NEB 2.5 MG/0.5 ML INH INHALATION ×5 (01:00→21:48)
[2020-08-09 05:29] LABS: Basophils Percent Auto 0.1 % (0.2-1.2); Hematocrit 38.3 % (37.0-47.0); Hemoglobin 12.6 g/dL (12.0-15.0); Immature Granulocyte Absolute 0.03 K/mm3 (0.00-0.031); Immature Granulocyte Percent A 0.4 % (0-0.5); Lymphocytes Absolute Auto 0.69 K/mm3 (0.9-3.2); Lymphocytes Percent Auto 8.7 % (18.3-44.2); Mean Corpuscular HGB Conc 32.9 g/dl (32-36); Mean Corpuscular Volume 91.2 fl (80-100); Mean Platelet Volume 10.6 fl (7.4-10.4); Monocytes Absolute Auto 0.4 K/mm3 (0.1-0.6); Neutrophils Absolute Auto 6.8 K/mm3 (1.3-6.7); Neutrophils Percent Auto 85.8 % (45.5-73.1); Platelet Count Result 289 k/mm3 (150-375); White Blood Count 7.9 K/mm3 (4.5-10.0)
[2020-08-09 05:46] LABS: Alanine Aminotransferase 26 U/L (4-35); Albumin Level 3.3 g/dL (3.5-5.1); Alkaline Phosphatase 106 U/L (38-126); Anion Gap 5 mmol/L (8-16); Aspartate Amino Transferase 47 U/L (14-36); Bilirubin,Total 0.5 mg/dL (0.2-1.3); Blood Urea Nitrogen 19 mg/dL (7-17); CRP 4.6 mg/dL (<1.0); Calcium 8.4 mg/dL (8.4-10.2); Carbon Dioxide 29 mmol/L (22-30); Chloride 100 mmol/L (98-107); Estimated CRCL calculation 109 ml/min; Estimated Glomerular Filt Rate > 60; Glucose 155 mg/dL (65-105); Potassium 4.4 mmol/L (3.4-5.0); Sodium 134 mmol/L (137-145)
--- NOTE | 2020-08-09 05:48 | PCRCNOTE ---
Patient refused abg ordered @[id number]
[2020-08-09] MEDS: LEVOTHYROXINE SODIUM 75 MCG TABLET PO (06:40)
[2020-08-09] MEDS: METOPROLOL TARTRATE INJ 5 MG/5 ML VIAL IV PUSH ×4 (06:40→21:43)
[2020-08-09] MEDS: ENOXAPARIN 120 MG/0.8 ML SYRINGE 115 MG SUB-Q ×2 (09:20→21:44)
[2020-08-09] MEDS: DEXAMETHASONE SOD PHOS INJ 4 MG/ML VIAL 6 MG IV PUSH (09:20)
[2020-08-09] MEDS: PANTOPRAZOLE 40 MG TABLET PO (14:30)
--- NOTE | 2020-08-09 16:14 | PM.IMPN ---
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 and requiring 15 L of oxygen, patient was started on dexamethasone on 08/07 10/15, and Remdesivir 08/07 10/10, convalescent plasma is ordered for the patient as patient is more hypoxic on BIPAP, receiving Fio2 100%, also on 08/08/2020 patient went into atrial fibrillation with RVR is a new onset, patient was seen by Oil Spraying Machine Operator, started patient on IV metoprolol 5mg q6, rate is trending down, Patient CHADS2-Vasc is 1 and full dose aspirin would be acceptable, Patient with COVID has high of clots, was started on Lovenox 1mg/kg q12, today patient was seen by game artist and started patient on amiodoran drip as HR remains elevated, patient is seen by electronic game developer and further recommendation to follow. (2) Suspected COVID-19 virus infection: Code(s): Z20.828 - Contact with and (suspected) exposure to other viral communicable diseases Status: Acute Assessment and Plan: plan is above (3) Bilateral pneumonia: Code(s): J18.9 - Pneumonia, unspecified organism Status: Acute Assessment and Plan: Most likely viral COVID pneumonia (4) Gastroesophageal reflux disease: Code(s): K21.9 - Gastro-esophageal reflux disease without esophagitis Status: Inactive Assessment and Plan: Will continue PPI (5) Hypothyroidism: Code(s): E03.9 - Hypothyroidism, unspecified Status: Acute Assessment and Plan: home regimen (6) Confusion: Code(s): R41.0 - Disorientation, unspecified Status: Acute Assessment and Plan: Patient clinically stable currently Additional Plan The patient has been admitted to the hospitalist service with acute respiratory failure with hypoxia secondary to extensive bilateral pneumonia, most likely COVID-19. She is quite ill and has been admitted to the IMU for closer monitoring. She has been started on dexamethasone but will hold on adding remdesivir, pending SARs CoV-2 by PCR. I am also going to start her on empiric antibiotics for possible bacterial pneumonia until her swab comes back. Continue contact, airborne, and droplet isolation. while she is alert and oriented x4 she has delay in her thought process and speech and is not at her baseline. Most likely related to infection and hypoxia; no focal deficits on exam. Her vital signs and labs were reviewed. Home medications will be reviewed and resumed as appropriate. 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 and requiring 15 L of oxygen, patient was started on dexamethasone on 08/07 10/15, and Remdesivir 08/07 10/10, convalescent plasma is ordered for the patient as patient is more hypoxic on BIPAP, receiving Fio2 100%, also on 08/08/2020 patient went into atrial fibrillation with RVR is a new onset, patient was seen by Oil Spraying Machine Operator, started patient on IV metoprolol 5mg q6, rate is trending down, Patient CHADS2-Vasc is 1 and full dose aspirin would be acceptable, Patient with COVID has high of clots, was started on Lovenox 1mg/kg q12, today patient was seen by game artist and started patient on amiodoran drip as HR remains elevated, patient is seen by electronic game developer and further recommendation to follow. Review of Systems Review of Systems: ROS unobtainable: Yes maurizio
--- NOTE | 2020-08-09 17:32 | PM.PNPUL ---
Progress Note: A&P Assessment and Plan (1) COVID-19: Code(s): U07.1 - COVID-19 Status: Acute Assessment and Plan: with pneumonia; hypoxemia is a bit better, not requiring BiPAP to maintain saturation; has been off bipap since around 1:00 pm She is concerned about getting amiodarone, has accepted lopressor 5 mg IV and wants to talk with Dr Naranjo about IV amio She has not slept for 12 nights, wants to get uninterrupted sleep We talked about having her sleep prone; she says that she cannot breathe sleeping on her stomach; however she will try to sleep supine or semi-prone. She has had breast cancer on the left side, so wants to try the right side for sleeping She is paranoid, and this may be due to sleep deprivation; the tech who was assigned to her last night left her alone for much of the night to allow her to sleep, however she is not getting enough quality sleep to make a difference. PLAN: minimize night time interruptions; melatonin 5 mg and trazodone 50 mg, trial of sleep on the right lateral side; Her weight is up 5 kg since yesterday, may be fluids, may be steroids; she does not appear edematous; she has a Sena, so I will order Lasix now to keep her more on the dry side with COVID and borderline status. (2) Acute respiratory failure with hypoxia: Code(s): J96.01 - Acute respiratory failure with hypoxia Status: Acute Assessment and Plan: She is still requiring high flow O2, on Airvo and nonbreather mask. Subjective Date/time seen: 08/09/20 17:32 This 60 year old female is seen in follow up for COVID pneumonia with hypoxemia. 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 She complains of being without sleep for 12 nights, and is convinced that getting sleep will allow her heart rate to decrease. She is in atrial fib at 124, declined IV amiodarone, worried about side effects. She is hungry, did not have much to eat yesterday; would like jello. She refused ABG today, and has refused many different types of treatments. She makes comments suggesting she is paranoid. She was offered convalescent plasma yesterday, immediately said no, then asked what it was. Says that people are talking to her like she is stupid, and she does not plan to in this hospital. Offered supportive conversation, and I brought her copies of her labs from today. She is on Air-vo 85% and 60 L/min; she is using BiPAP 07/13 at times with sleep with 100% O2 entrained. She also has a 100% non-rebreather mask for back up wihile eating. CRP - steady decrease - 24.3 on Aug 06, now 4.6 LDH 2118Aug 07 Ferritin 712 Aug 07 Current treatment: Remdesivir started 08/07, has had 2 doses dexamethasone 6 mg started 08/07; 3 doses given lovenox 115 mg Q 12 hours for atrial fib Review of Systems Review of Systems: Narrative: exhausted without sleep Cardiovascular: Cardiovascular: Denies chest pain and Denies palpitations Gastrointestinal: Comments: she is hungry Genitourinary: Comments: has a Sena Exam Const: General: no acute distress Eyes: General: appearance normal, both eyes and all related structures Neck: Neck: no JVD Resp: Auscultation: crackles Other: bilat crackles; decreased breath sounds in the bases; increased respiratory effort Cardio: Rate: tachycardic Rhythm: abnormal rhythm regularly irregular Other: atrial fib at 124 : Other: Sena Urinary Catheter: Urinary Catheter: patent and draining Skin: General skin exam: normal color Other: mild discoloration of left hallux, mild cyanosis Extrem: General: normal to inspection and abnormal gait Psych: Thought content: Yes Depressive thoughts present (and paranoid thoughts) Objective Data Vital Signs Vital Signs: Vital Signs - 24 hr 08/08/20 17:42 08/08/20 18:00 08/08/20 20:00 Temperature 36.2
[2020-08-09] MEDS: FUROSEMIDE INJ 40 MG/4 ML VIAL 20 MG IV PUSH (21:43)
[2020-08-09] MEDS: MELATONIN 5 MG TABLET PO (21:44)
[2020-08-09] MEDS: traZODone HCL 50 MG TABLET PO (21:44)
[2020-08-09] MEDS: REMDESIVIR 100 MG/NS 250 ML 100 MG/250 ML BAG 250 MG IVPB (21:44)
[2020-08-10] VITALS (33 sets, daily range): BP systolic 128–147; BP diastolic 67–96; PULSE 77–122; RESP 22–33; TEMP 35.6–36.4; O2SAT 82–99
[2020-08-10] MEDS: ALBUTEROL SULFATE NEB 2.5 MG/0.5 ML INH INHALATION ×5 (03:49→21:09)
[2020-08-10] MEDS: IPRATROPIUM BR 0.02% INH SOLN 0.5 MG/2.5 ML VIAL INHALATION ×5 (03:49→21:09)
[2020-08-10] MEDS: LEVOTHYROXINE SODIUM 75 MCG TABLET PO (05:18)
[2020-08-10] MEDS: METOPROLOL TARTRATE INJ 5 MG/5 ML VIAL IV PUSH ×5 (05:18→21:19)
[2020-08-10 05:44] LABS: Basophils Percent Auto 0.1 % (0.2-1.2); Hematocrit 41.4 % (37.0-47.0); Hemoglobin 13.8 g/dL (12.0-15.0); Immature Granulocyte Absolute 0.09 K/mm3 (0.00-0.031); Immature Granulocyte Percent A 0.9 % (0-0.5); Lymphocytes Absolute Auto 0.66 K/mm3 (0.9-3.2); Lymphocytes Percent Auto 6.4 % (18.3-44.2); Mean Corpuscular HGB Conc 33.3 g/dl (32-36); Mean Corpuscular Hemoglobin 30.9 pg (26-34); Mean Corpuscular Volume 92.8 fl (80-100); Mean Platelet Volume 10.1 fl (7.4-10.4); Monocytes Absolute Auto 0.4 K/mm3 (0.1-0.6); Monocytes Percent Auto 3.8 % (2.6-8.5); Neutrophils Absolute Auto 9.2 K/mm3 (1.3-6.7); Neutrophils Percent Auto 88.8 % (45.5-73.1); Platelet Count Result 299 k/mm3 (150-375); Red Blood Count 4.46 M/mm3 (4.2-5.4); White Blood Count 10.3 K/mm3 (4.5-10.0)
[2020-08-10 05:50] LABS: Alanine Aminotransferase 27 U/L (4-35); Albumin Level 3.3 g/dL (3.5-5.1); Alkaline Phosphatase 122 U/L (38-126); Anion Gap 6 mmol/L (8-16); Aspartate Amino Transferase 48 U/L (14-36); Bilirubin,Total 0.6 mg/dL (0.2-1.3); Blood Urea Nitrogen 19 mg/dL (7-17); CRP 3.6 mg/dL (<1.0); Calcium 8.7 mg/dL (8.4-10.2); Carbon Dioxide 33 mmol/L (22-30); Chloride 98 mmol/L (98-107); Estimated CRCL calculation 94 ml/min; Estimated Glomerular Filt Rate > 60; Glucose 122 mg/dL (65-105); Potassium 4.2 mmol/L (3.4-5.0); Sodium 137 mmol/L (137-145)
[2020-08-10] MEDS: ENOXAPARIN 120 MG/0.8 ML SYRINGE 115 MG SUB-Q ×2 (09:07→21:19)
[2020-08-10] MEDS: DEXAMETHASONE SOD PHOS INJ 4 MG/ML VIAL 6 MG IV PUSH (09:07)
[2020-08-10] MEDS: PANTOPRAZOLE 40 MG TABLET PO (09:07)
--- NOTE | 2020-08-10 10:29 | PM.PNPUL ---
Progress Note: A&P Assessment and Plan (1) COVID-19: Code(s): U07.1 - COVID-19 Status: Acute Assessment and Plan: * bilateral pneumonia; hypoxemia is the same, with a drop in saturation which required a return to BiPAP to maintain saturation; * has been on bipap 2/6, with 100%; TV is higher than desired; will decrease to 10/5, and wean FiO2 as her sat is 95%. * last CXR Aug 08;will repeat tomorrow am with increasing WBC. * was able to sleep last night with melatonin and trazodone; complained of little sleep for 12 nights. * has not slept prone; she has not tried sleeping semi-prone which may be helpful. She has had breast cancer on the left side, so wants to try the right side for sleeping She is less paranoid, maybe due to getting more sleep. We are trying to let her sleep without as many interuptions. ssigned to her last night left her alone for much of the night to allow her to sleep, however she is not getting enough quality sleep to make a difference. PLAN: minimize night time interruptions; melatonin 5 mg and trazodone 50 mg, trial of sleep on the right lateral side; Her weight is up 5 kg since yesterday, may be fluids, may be steroids; she does not appear edematous; she has a Sena, so I will order Lasix now to keep her more on the dry side with COVID and borderline status. (2) Acute respiratory failure with hypoxia: Code(s): J96.01 - Acute respiratory failure with hypoxia Status: Acute Assessment and Plan: She is still requiring high flow O2, on Airvo and nonbreather mask alternating with bipap; repeat CXR. She refused the last ABG. She had a smal dose of Lasix yesterday 40 mg IV and her weight is down 2 kg, overall higher compared ot admission Additional Plan COVID pneumonia clinically worsening. Adding metoprolol for tachycardia. Following oxygenation carefully. Subjective Date/time seen: 08/10/20 10:29 This 60 year old female is seen in follow up for COVID pneumonia with hypoxemia. She is talking more slower today, not as angry today. Less animated. She has no appetite, agrees to eat jello. She does not want IV amiodarone, worried about side effects. WBC is higher 10.3K. Chemistries are stable. BUN 19, creat 0.7. She was on Airvo with NRM, dropped her saturation to low 80% range today, placed on BiPAP again, 07/13 with 100% FiO; sat is now 95%; FiO2 can be weaned. Her TV are 700-900s, higher than desirable; can reduce pressures. Heart rate is lower, 103-112. Resp 25. She remains in rapid atrial fib with rates in the 110s mostly. Still objecting to IV amiodarone, worried about side effects. I brought [employer] for her for entertainment while she is recovering in her room. CRP - steady decrease - 24.3 on Aug 06, now 4.6 LDH 2118Aug 07 Ferritin 712 Aug 07 Current treatment: Remdesivir started 08/07, has had 3 doses dexamethasone 6 mg started 08/07; 4 doses given lovenox 115 mg Q 12 hours for atrial fib Review of Systems Review of Systems: Narrative: She is tired, says her shortness of breath is the same. No new compalints. No chest pain, nausea, vomiting, sputum, pleuritic chest pain. Constitutional: Constitutional: Denies chills and Reports lethargy Eyes: Comments: no visual changes Cardiovascular: Cardiovascular: Denies chest pain and Denies palpitations Endocrine: Endocrine: Denies palpitations Exam Const: General: no acute distress Eyes: General: appearance normal, both eyes and all related structures Neck: Neck: no JVD Resp: Auscultation: crackles Other: bilat crackles; decreased breath sounds in the bases; mild increased respiratory effort and respiratory rate is 25 Cardio: Rate: tachycardic Rhythm: abnormal rhythm regularly irregular Other: atrial fib at 112 GI: GI Palp: Yes Soft to palpation Auscultation: normal
--- NOTE | 2020-08-10 13:45 | PM.PNCARD ---
Progress Note: A&P Assessment and Plan (1) Atrial fibrillation with rapid ventricular response: Code(s): I48.91 - Unspecified atrial fibrillation Status: Acute Assessment and Plan: New onset this admission in setting of COVID-19 infection with bilateral pneumonia and hypoxic respiratory failure. No prior known history, patient unaware heart rate 120-150 beats per minute. CHADS2 Vasc score 1. Technically, ASA 325 mg daily acceptable, however, unclear if patient may require cardioversion in near future. Enoxaparin 1 milligram/kilogram subcutaneous q.12 hours. -patient is hemodynamically stable but concern for risk of developing CHF and/or tachycardia induced CM if HR remains poorly controlled. Monitor volume status. IV Lasix as needed. -Rate control strategy initially but HR poorly controlled with IV metoprolol 5 mg Q 6 hour. Amiodarone ordered yesterday but pt refused out of fear for side effects. IV Metoprolol inc to q4hr with improved HR control 90's-110's generally. -Discussed risks, benefits potential, and alternatives with regard to A.Fib management including Amiodarone. Certainly we can attempt to avoid, however, if required plan would be for very short-term use. Patient verbalized understanding. Encouraged her to remain open with regards to our recommendations given clinical circumstances. Patient kept repeating she wanted to discuss a little stronger prior to consider using amiodarone, however, I expressed potential risks with uncontrolled atrial fibrillation resulting in LV dysfunction contributing to worsening respiratory status. I made it clear that I do not believe this is occurring at this time yet she needs to be monitored closely. -Check 2D Echo in AM -CXR in AM (2) COVID-19: Code(s): U07.1 - COVID-19 Status: Acute Assessment and Plan: Per primary service. Complicated by COVID pneumonia with extensive bilateral infiltrates Patient remains hypoxic despite non-rebreather. Serious concern for further deterioration of respiratory status requiring intubation mechanical ventilatory support. Remdesivir and dexamethasone have been ordered by primary service. Patient is critically ill. (3) Acute respiratory failure with hypoxia: Code(s): J96.01 - Acute respiratory failure with hypoxia Status: Acute Assessment and Plan: Secondary to COVID-19 pneumonia. Pulmonology has been consulted. BiPAP stabilizing thus far. If none no further stabilization and/or worsening hypoxia intubation, non-rebreather has proven inadequate thus far. (4) Hypothyroidism: Code(s): E03.9 - Hypothyroidism, unspecified Status: Acute Assessment and Plan: Stable TSH 0.927 Subjective Date/time seen: Date of service: 08/10/20 13:45 Follow-up for atrial fibrillation with rapid ventricular response Patient continues to feel very weak, and short of breath. Oxygen saturations quite stable on BiPAP but desaturates to the low 80s on non-rebreather. AFib with RVR persistent heart rate this a.m. 90s to 110's. Yesterday HR 110-130's, pt refused Amiodarone so Metoprolol inc to 5mg IV [id number]. No chest pain. Patient states she was very concerned about potential side effects with amiodarone and also indicated she wished to get stronger prior to using such medication. -patient given IV Lasix yesterday due to weight gain and shortness of breath she is unable to determine if any benefit. Review of Systems Review of Systems: All systems reviewed & are unremarkable except as noted in HPI and below Constitutional: Constitutional: Reports as per HPI, Reports no additional constitutional complaints, Reports difficulty sleeping, Reports fatigue and Reports weakness Eyes: Eyes: Reports as per HPI and Reports no additional eye complaints ENT: Reports system reviewed and no additional complaints, except as documented and Reports as per HPI Cardiovascular: Cardiovascular: Reports as per HPI, Reports no
--- NOTE | 2020-08-10 15:31 | PM.IMPN ---
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, 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 and requiring 15 L of oxygen, patient was started on dexamethasone on 08/07 11/15, and Remdesivir 08/07 11/10, convalescent plasma is ordered for the patient as patient is more hypoxic on BIPAP, receiving Fio2 100%, also on 08/08/2020 patient went into atrial fibrillation with RVR is a new onset, patient was seen by Head Grower, started patient on IV metoprolol 5mg q6, rate was trending down, Patient CHADS2-Vasc is 1 and full dose aspirin would be acceptable, Patient with COVID has high of clots, was started on Lovenox 1mg/kg q12, on 08/09/20 patient was seen by construction lineman and started patient on amiodoran drip as HR remains elevated however patient refused amiodoran, today patient pt HR is still above 100 and construction lineman discussed with patient and risk of refusing the medication and worsening cardiomyopathy and CHF, patient will complete Remdisivir 5 day course tomorrow, patient is seen by camera prototyping engineer may continue for another 5days, and further recommendation to follow. (2) Suspected COVID-19 virus infection: Code(s): Z20.828 - Contact with and (suspected) exposure to other viral communicable diseases Status: Acute Assessment and Plan: plan is above (3) Bilateral pneumonia: Code(s): J18.9 - Pneumonia, unspecified organism Status: Acute Assessment and Plan: Most likely viral COVID pneumonia (4) Gastroesophageal reflux disease: Code(s): K21.9 - Gastro-esophageal reflux disease without esophagitis Status: Inactive Assessment and Plan: Will continue PPI (5) Hypothyroidism: Code(s): E03.9 - Hypothyroidism, unspecified Status: Acute Assessment and Plan: home regimen (6) Confusion: Code(s): R41.0 - Disorientation, unspecified Status: Acute Assessment and Plan: Patient clinically stable currently Subjective Date/time seen: 08/10/20 15:31 Patient is a 60-year-old female presented to emergency department with complaint cough shortness of breath patient was diagnosed COVID-19 does not remember when exactly she was exposed, 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, 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 and requiring 15 L of oxygen, patient was started on dexamethasone on 08/07 11/15, and Remdesivir 08/07 11/10, convalescent plasma is ordered for the patient as patient is more hypoxic on BIPAP, receiving Fio2 100%, also on 08/08/2020 patient went into atrial fibrillation with RVR is a new onset, patient was seen by Head Grower, started patient on IV metoprolol 5mg q6, rate was trending down, Patient CHADS2-Vasc is 1 and full dose aspirin would be acceptable, Patient with COVID has high of clots, was started on Lovenox 1mg/kg q12, on 08/09/20 patient was seen by construction lineman and started patient on amiodoran drip as HR remains elevated however patient refused amiodoran, today patient pt HR is still above 100 and construction lineman discussed with patient and risk of refusing the medication and worsening cardiomyopathy and CHF, patient will complete Remdisivir 5 day course tomorrow, patient is seen by camera prototyping engineer may continue for another 5days, and further recommendation to follow. Review of Systems Review of Systems: ROS unobtainable: Yes unobtainable due to medical condition Exam Narrative: Exam Narrative: Morbidly obese Patient is comfortable, NAD HEENT:on BIPAP LUNGS: Normal respiratory efforts ABD: Obese Lower extremities: no edema SKIN: nonjaundiced Neuro: on B
[2020-08-10] MEDS: MELATONIN 5 MG TABLET PO (21:19)
[2020-08-10] MEDS: REMDESIVIR 100 MG/NS 250 ML 100 MG/250 ML BAG 250 MG IVPB (21:19)
[2020-08-11] VITALS (29 sets, daily range): BP systolic 129–147; BP diastolic 82–98; PULSE 100–156; RESP 24–38; TEMP 36.1–36.6; O2SAT 89–97
[2020-08-11] MEDS: ALBUTEROL SULFATE NEB 2.5 MG/0.5 ML INH INHALATION ×6 (01:12→23:37)
[2020-08-11] MEDS: IPRATROPIUM BR 0.02% INH SOLN 0.5 MG/2.5 ML VIAL INHALATION ×6 (01:12→23:37)
[2020-08-11] MEDS: METOPROLOL TARTRATE INJ 5 MG/5 ML VIAL IV PUSH ×3 (01:42→08:26)
[2020-08-11] MEDS: LEVOTHYROXINE SODIUM 75 MCG TABLET PO (05:40)
[2020-08-11 05:52] LABS: Basophils Percent Auto 0.1 % (0.2-1.2); Hematocrit 41.4 % (37.0-47.0); Hemoglobin 13.7 g/dL (12.0-15.0); Immature Granulocyte Absolute 0.12 K/mm3 (0.00-0.031); Lymphocytes Absolute Auto 0.57 K/mm3 (0.9-3.2); Lymphocytes Percent Auto 4.9 % (18.3-44.2); Mean Corpuscular HGB Conc 33.1 g/dl (32-36); Mean Corpuscular Hemoglobin 30.6 pg (26-34); Mean Corpuscular Volume 92.4 fl (80-100); Mean Platelet Volume 10.5 fl (7.4-10.4); Monocytes Absolute Auto 0.3 K/mm3 (0.1-0.6); Monocytes Percent Auto 2.1 % (2.6-8.5); Neutrophils Absolute Auto 10.7 K/mm3 (1.3-6.7); Neutrophils Percent Auto 91.9 % (45.5-73.1); Platelet Count Result 321 k/mm3 (150-375); Red Blood Count 4.48 M/mm3 (4.2-5.4); Red Cell Distribution Width 13.1 % (11.5-14.5); White Blood Count 11.7 K/mm3 (4.5-10.0)
[2020-08-11 06:09] LABS: Alanine Aminotransferase 24 U/L (4-35); Albumin Level 3.1 g/dL (3.5-5.1); Alkaline Phosphatase 122 U/L (38-126); Anion Gap 5 mmol/L (8-16); Aspartate Amino Transferase 46 U/L (14-36); Bilirubin,Total 0.7 mg/dL (0.2-1.3); Blood Urea Nitrogen 17 mg/dL (7-17); CRP 7.9 mg/dL (<1.0); Calcium 8.7 mg/dL (8.4-10.2); Carbon Dioxide 33 mmol/L (22-30); Chloride 98 mmol/L (98-107); Estimated CRCL calculation 107 ml/min; Estimated Glomerular Filt Rate > 60; Glucose 118 mg/dL (65-105); Potassium 4.1 mmol/L (3.4-5.0); Sodium 136 mmol/L (137-145)
[2020-08-11 06:13] LABS: NT Pro B Type Natriuretic Pept 867 PG/ML (5-100)
[2020-08-11] MEDS: ENOXAPARIN 120 MG/0.8 ML SYRINGE 115 MG SUB-Q ×2 (08:27→21:39)
[2020-08-11] MEDS: DEXAMETHASONE SOD PHOS INJ 4 MG/ML VIAL 6 MG IV PUSH (08:27)
--- NOTE | 2020-08-11 10:42 | PM.PNCARD ---
Progress Note: A&P Additional Plan 60-year-old woman with: Atrial fib with RVR no real hemodynamic embarrassment at this time and this undoubtedly is a consequence of her COVID pneumonitis which is significant by x-ray I will advance her beta-kurtis dosage and give her 1 dose of IV digoxin today. Jacob Curry MD [facility] Subjective Date/time seen: Date of service: 08/11/20 10:42 Interval history: Follow-up visit in this 60-year-old woman with: [place] virus pneumonia and concurrent atrial fibrillation with RVR Patient is essentially asymptomatic still requiring BiPAP for adequate oxygenation. Still refusing to be treated with amiodarone intravenously. All of her medications are intravenous according to the record Exam Narrative: Exam Narrative: General: Pleasant obese female lying supine in bed, tachypneic and dyspneic with conversation but no obvious distress, appearing fatigued otherwise well developed, alert and oriented x3, cooperative. BiPAP mask in place. Head: atraumatic, normocephalic Eyes: EOM intact, sclerae anicteric, conjunctivae unremarkable Ears/Nose: external inspection of ears and nose were grossly normal Mouth/Throat: oral mucosa pink and moist Neck: supple, normal range of motion, no jugular venous distention or carotid bruits, thyroid nonpalpable, trachea midline. Cardiac: Tachycardic, irregularly irregular rate and rhythm, normal S1-S2, no significant appreciated murmurs. Lungs: Diminished breath sounds diffusely, tachypneic, no obvious rales, wheezes, or rhonchi. Abdomen: Obese, soft, nontender, nondistended, positive bowel sounds throughout. Unable to appreciable hepatosplenomegaly, no rebound guarding or rigidity noted. Abdominal aorta nonpalpable, no appreciable bruits. Extremities: trace bilateral LE edema, no clubbing or cyanosis. Extremities warm and well perfused. Skin: Warm and dry without ecchymoses, rashes, and/or petechiae. Musculoskeletal: Muscle strength and tone intact throughout without obvious deformities. Vascular: Carotid upstrokes 2+ bilaterally, radial pulses 2+ bilaterally, dorsalis pedis pulses 2+ bilaterally Neurologic: Cranial nerves 2-12 grossly intact, examination grossly nonfocal Pscyhiatric: Mood calm but concerned, otherwise appropriate. Const: General: confusion Orientation/consciousness: confusion Neuro: General: confusion Objective Data Vital Signs Vital Signs: Vital Signs - 24 hr 08/10/20 12:00 08/10/20 12:13 08/10/20 12:57 Temperature 35.6 C L Pulse Rate 105 H 96 100 Respiratory Rate 26 H 26 H Blood Pressure 131/79 Pulse Oximetry 99 94 08/10/20 13:08 08/10/20 13:47 08/10/20 14:00 Temperature Pulse Rate 107 H 117 H 113 H Respiratory Rate 25 H Blood Pressure Pulse Oximetry 92 08/10/20 15:36 08/10/20 15:40 08/10/20 16:00 Temperature Pulse Rate 112 H 112 H 120 H Respiratory Rate 28 H 28 H Blood Pressure Pulse Oximetry 93 93 08/10/20 16:51 08/10/20 17:28 08/10/20 18:00 Temperature 36.0 C L Pulse Rate 122 H 122 H 113 H Respiratory Rate 22 H Blood Pressure 128/96 H Pulse Oximetry 93 08/10/20 20:00 08/10/20 21:10 08/10/20 21:15 Temperature 36.2 C L Pulse Rate 110 H 77 102 H Respiratory Rate 33 H 22 H 27 H Blood Pressure 147/92 H Pulse Oximetry 93 93 08/10/20 21:19 08/10/20 22:00 08/10/20 23:51 Temperature Pulse Rate 110 H 105 H 109 H Respiratory Rate 26 H Blood Pressure Pulse Oximetry 93 08/11/20 00:00 08/11/20 01:12 08/11/20 01:42 Temperature 36.1 C L Pulse Rate 108 H 100 156 H Respiratory Rate 26 H 25 H Blood Pressure 147/97 H Pulse Oximetry 94 08/11/20 02:00 08/11/20 04:00 08/11/20 05:39 Temperature 36.1 C L Pulse Rate 120 H 121 H 139 H Respiratory Rate 38 H Blood Pressure 145/84 H Pulse Oximetry 95 08/11/20 06:00 08/11/20 08:00 08/11/20 08:26 Temperature 36.2 C L Pulse R
[2020-08-11] MEDS: DIGOXIN INJ 250 MCG/ML 2 ML AMP (*BKC) 500 MCG IV PUSH (11:28)
--- NOTE | 2020-08-11 11:33 | PM.PNPUL ---
Progress Note: A&P Assessment and Plan (1) COVID-19: Code(s): U07.1 - COVID-19 Status: Acute Assessment and Plan: COVID 19 pneumonia with ARDS. Worsening oxygenation from admit and now requires BiPAP for last 24 hours. S/P remdesivir, dexamethasone 08/07 and convalescent plasma 08/08. 08/11 Patient requiring continuous BiPAP 12/6 95% for 24 hours. Currently sturations 94-95%. She is talking and following commands. Does not feel like she can take BiPAP off. CXR with diffuse interstitailand alveolar infiltrates unchanged from 08/08/2020. Requires high FIO2 and BiPAp but at least her CXR is stable and she has not deteriorated in last 24 hours. Continue remdesivir and dexamethasone for total 10 days. Attempt prone ventilation if possible but limited by body habitus and left sided breast cancer in past. We are trying to let her sleep without as many interuptions. ssigned to her last night left her alone for much of the night to allow her to sleep, however she is not getting enough quality sleep to make a difference. melatonin 5 mg and trazodone 50 mg. (2) Acute respiratory failure with hypoxia: Code(s): J96.01 - Acute respiratory failure with hypoxia Status: Acute Assessment and Plan: Patient requiring continuous BiPAP 12/6 95% for 24 hours. Wean FIO2 for sats > 90%. (3) Atrial fibrillation with rapid ventricular response: Code(s): I48.91 - Unspecified atrial fibrillation Status: Acute Assessment and Plan: Managed by cardiology. Agree with no amiodarone for now given lung injury from COVID-19. Subjective Date/time seen: COVID 19 pneumonia with ARDS started remdesivir 08/07, dexamethsone 08/07 and received convalescent plasma 08/08/2020 08/11/20 11:33 Patient requiring continuous BiPAP 12/ 95% for 24 hours. Currently sturations 94-95%. She is talking and following commands. Does not feel like she can take BiPAP off. CXR with diffuse interstitailand alveolar infiltrates unchanged from 08/08/2020. Review of Systems Constitutional: Constitutional: Denies chills and Reports lethargy Eyes: Eyes: Reports no additional eye complaints ENT: Reports system reviewed and no additional complaints, except as documented Cardiovascular: Cardiovascular: Denies chest pain and Denies palpitations Respiratory: Respiratory: Reports cough and Reports dyspnea Gastrointestinal: Gastrointestinal: Reports no additional gastrointestinal complaints Genitourinary: Genitourinary: Reports no additional female genitourinary complaints Neurologic: Reports system reviewed and no additional complaints, except as documented, Reports confusion and Reports weakness Endocrine: Endocrine: Denies palpitations Exam Const: General: no acute distress Other: cooperative currenlty Eyes: General: appearance normal, both eyes and all related structures Neck: Neck: no JVD Resp: Auscultation: crackles Other: bilat crackles; decreased breath sounds in the bases; Cardio: Rate: tachycardic Rhythm: abnormal rhythm regularly irregular Other: atrial fib GI: Auscultation: normal bowel sounds : Other: Sena Urinary Catheter: Urinary Catheter: patent and draining Skin: General skin exam: normal color Other: no cyanosis Extrem: General: normal to inspection and abnormal gait Psych: Other: 1/3 flat affect; not able to process information normally; she might have become hypoxic at home prior to admission 1/4 more communicative today, knows name, place and date, follows simpled commands,unhappy and frustarteed she is not improving quicker Objective Data Vital Signs Vital Signs: Vital Signs - 24 hr 08/10/20 12:00 08/10/20 12:13 08/10/20 12:57 Temperature 35.6 C L Pulse Rate 105 H 96 100 Respiratory Rate 26 H 26 H Blood Pressure 131/79 Pulse Oximetry 99 94
[2020-08-11] MEDS: METOPROLOL TARTRATE INJ 5 MG/5 ML VIAL 10 MG IV PUSH ×3 (12:47→21:39)
--- NOTE | 2020-08-11 16:25 | PM.IMPN ---
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 oxygen, patient was started on dexamethasone on 08/07 11/15, and Remdesivir 08/07 11/10, convalescent plasma is ordered for the patient as patient is more hypoxic on BIPAP, receiving Fio2 100%, also on 08/08/2020 patient went into atrial fibrillation with RVR is a new onset, patient was seen by News Commentator, started patient on IV metoprolol 5mg q6, rate was trending down, Patient CHADS2-Vasc is 1 and full dose aspirin would be acceptable, Patient with COVID has high of clots, was started on Lovenox 1mg/kg q12, on 08/09/20 patient was seen by stone finisher and started patient on amiodoran drip as HR remains elevated however patient refused amiodoran, today patient pt HR is still above 100 and stone finisher discussed with patient and risk of refusing the medication and worsening cardiomyopathy and CHF, patient will complete Remdisivir 5 day course today d/w physical therapy technician will extend Remdesivir for another 5 days and and continue dexamethasone a total of 10 day, patient is seen by physical therapy technician and agrees with plan, patient seen by Cardiology patient does not want to take amiodarone, increase the beta-kurtis and added digoxin for rate control. Will continue to monitor (2) Suspected COVID-19 virus infection: Code(s): Z20.828 - Contact with and (suspected) exposure to other viral communicable diseases Status: Acute Assessment and Plan: plan is above (3) Bilateral pneumonia: Code(s): J18.9 - Pneumonia, unspecified organism Status: Acute Assessment and Plan: Most likely viral COVID pneumonia (4) Gastroesophageal reflux disease: Code(s): K21.9 - Gastro-esophageal reflux disease without esophagitis Status: Inactive Assessment and Plan: Will continue PPI (5) Hypothyroidism: Code(s): E03.9 - Hypothyroidism, unspecified Status: Acute Assessment and Plan: home regimen (6) Confusion: Code(s): R41.0 - Disorientation, unspecified Status: Acute Assessment and Plan: Patient clinically stable currently Additional Plan The patient has been admitted to the hospitalist service with acute respiratory failure with hypoxia secondary to extensive bilateral pneumonia, most likely COVID-19. She is quite ill and has been admitted to the IMU for closer monitoring. She has been started on dexamethasone but will hold on adding remdesivir, pending SARs CoV-2 by PCR. I am also going to start her on empiric antibiotics for possible bacterial pneumonia until her swab comes back. Continue contact, airborne, and droplet isolation. while she is alert and oriented x4 she has delay in her thought process and speech and is not at her baseline. Most likely related to infection and hypoxia; no focal deficits on exam. Her vital signs and labs were reviewed. Home medications will be reviewed and resumed as appropriate. 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
[2020-08-11] MEDS: MELATONIN 5 MG TABLET PO (21:39)
[2020-08-11] MEDS: REMDESIVIR 100 MG/NS 250 ML 100 MG/250 ML BAG 250 MG IVPB (22:17)
[2020-08-12] VITALS (33 sets, daily range): BP systolic 134–158; BP diastolic 86–118; PULSE 100–147; RESP 24–38; TEMP 35.9–36.7; O2SAT 76–96
[2020-08-12] MEDS: METOPROLOL TARTRATE INJ 5 MG/5 ML VIAL 10 MG IV PUSH ×6 (00:26→21:19)
--- NOTE | 2020-08-12 01:32 | PC.NURSE ---
PATIENT HAS BEEN GETTING UP OUT OF BED WITHOUT ASSISTANCE AND TAKING OFF BIPAP AND PUTTING IT ON STANDBY AND WALKING TO THE RESTROOM WITHOUT ANY OXYGEN. PATIENT IS ALSO PUTTING BIPAP IN STANDBY TO TAKE OFF BIPAP TO BLOW HER NOSE OR WHEN SHE WANTS. SO THAT STAFF DOESN'T COME IN FROM THE BIPAP. I WAS STANDING OUTSIDE OF HER ROOM AND HEARD HER TOILET FLUSH, JUST AFTER BIPAP SOUNDED AND STOPPED. I WAS GETTING MEDS READY FOR THE NEXT ROOM AND DECIDED TO GO INTO HER ROOM FIRST. SHE WAS BACK IN BED BY THIS TIME. THE COMMODE FLUSH FAUCET WAS DOWN AND THE BEDPAN WAS ON THE TOILET SEAT AT THAT TIME. I MADE A NOTE TO LOOK, BECAUSE SHE DENIED GETTING UP. THEN WHEN I HAD TO GO IN AGAIN THE COMMODE FLUSH FAUCET WAS DOWN AND THE BEDPAN WAS NOW ON THE SIDE OF THE TOILET. NEITHER ME OR THE TECH HAS MOVED IT AND WE WERE THE ONLY ONES IN THE ROOM. THERE IS NO EXTENSION TUBING TO REACH THE RESTROOM SET UP IN THE ROOM. AIRVO IS SET UP AND TURNED OFF RIGHT NOW AND HER BIPAP IS ON. SHE IS ON 100% ON BIPAP AND HER O2 SATS DROP INTO THE 60'S FAST WHEN OFF O2. PATIENT IS AWARE OF HER CONDITION AND HAS BEEN TOLD MULTIPLE TIMES OF HOW MUCH O2 SHE IS ON AND THAT SHE IS GETTING CLOSE TO INTUBATION. ALLERGIST WAS CALLED TO SPEAK TO PATIENT ABOUT TOUCHING THE EQUIPMENT AND GETTING UP WITHOUT ASSISTANCE. PATIENT DENIES EVERYTHING.
[2020-08-12] MEDS: IPRATROPIUM BR 0.02% INH SOLN 0.5 MG/2.5 ML VIAL INHALATION ×6 (03:43→23:40)
[2020-08-12] MEDS: ALBUTEROL SULFATE NEB 2.5 MG/0.5 ML INH INHALATION ×6 (03:43→23:40)
[2020-08-12] MEDS: LEVOTHYROXINE SODIUM 75 MCG TABLET PO (05:21)
[2020-08-12 05:59] LABS: Basophils Percent Auto 0.3 % (0.2-1.2); Hematocrit 44.4 % (37.0-47.0); Hemoglobin 14.3 g/dL (12.0-15.0); Immature Granulocyte Absolute 0.13 K/mm3 (0.00-0.031); Immature Granulocyte Percent A 1.1 % (0-0.5); Lymphocytes Absolute Auto 0.47 K/mm3 (0.9-3.2); Lymphocytes Percent Auto 3.9 % (18.3-44.2); Mean Corpuscular HGB Conc 32.2 g/dl (32-36); Mean Corpuscular Hemoglobin 29.5 pg (26-34); Mean Corpuscular Volume 91.7 fl (80-100); Mean Platelet Volume 10.5 fl (7.4-10.4); Monocytes Absolute Auto 0.2 K/mm3 (0.1-0.6); Monocytes Percent Auto 1.7 % (2.6-8.5); Neutrophils Absolute Auto 11.1 K/mm3 (1.3-6.7); Platelet Count Result 360 k/mm3 (150-375); Red Blood Count 4.84 M/mm3 (4.2-5.4); Red Cell Distribution Width 12.8 % (11.5-14.5)
[2020-08-12 06:55] LABS: Alanine Aminotransferase 27 U/L (4-35); Albumin Level 3.4 g/dL (3.5-5.1); Alkaline Phosphatase 143 U/L (38-126); Anion Gap 6 mmol/L (8-16); Aspartate Amino Transferase 55 U/L (14-36); Bilirubin,Total 0.8 mg/dL (0.2-1.3); Blood Urea Nitrogen 17 mg/dL (7-17); CRP 16.3 mg/dL (<1.0); Calcium 9.2 mg/dL (8.4-10.2); Carbon Dioxide 35 mmol/L (22-30); Chloride 97 mmol/L (98-107); Estimated CRCL calculation 93 ml/min; Estimated Glomerular Filt Rate > 60; Glucose 106 mg/dL (65-105); Potassium 4.6 mmol/L (3.4-5.0); Sodium 138 mmol/L (137-145)
[2020-08-12] MEDS: DEXAMETHASONE SOD PHOS INJ 4 MG/ML VIAL 6 MG IV PUSH (08:36)
[2020-08-12] MEDS: ENOXAPARIN 120 MG/0.8 ML SYRINGE 115 MG SUB-Q ×2 (08:36→21:19)
--- NOTE | 2020-08-12 10:45 | PM.PNPUL ---
Progress Note: A&P Assessment and Plan (1) COVID-19: Code(s): U07.1 - COVID-19 Status: Acute Assessment and Plan: COVID 19 pneumonia with ARDS. Worsening oxygenation from admit on 08/06 and now requires BiPAP for last 48 hours. S/P remdesivir, dexamethasone 08/07 and convalescent plasma 08/08. 08/11 Patient requiring continuous BiPAP 12/6 95% for 24 hours. Currently sturations 94-95%. She is talking and following commands. Does not feel like she can take BiPAP off. CXR with diffuse interstitailand alveolar infiltrates unchanged from 08/08/2020. Requires high FIO2 and BiPAp but at least her CXR is stable and she has not deteriorated in last 24 hours. 08/12/20 Patient requiring continuous BiPAP 12/6 100% for 48 hours. Currently saturations 93%. She is talking and following commands. Will try off BiPAP later today. Continue remdesivir and dexamethasone for total 10 days. Attempt prone ventilation if possible but limited by body habitus and left sided breast cancer in past. Improved sleep with melatonin 5 mg and trazodone 50 mg. (2) Acute respiratory failure with hypoxia: Code(s): J96.01 - Acute respiratory failure with hypoxia Status: Acute Assessment and Plan: 08/11 Patient requiring continuous BiPAP 12/6 95% for 24 hours. Wean FIO2 for sats > 90%. 08/12 Patient requiring continuous BiPAP 12/6 now at 100% and on BiPAP for 48 hours. Wean FIO2 for sats > 90%. Try Airvo later today. (3) Atrial fibrillation with rapid ventricular response: Code(s): I48.91 - Unspecified atrial fibrillation Status: Acute Assessment and Plan: Managed by cardiology. Metoprolol increased 10 Q 4 on 08/12. Agree with no amiodarone for now given lung injury from COVID-19. Subjective Date/time seen: Date/time seen: COVID 19 pneumonia with ARDS started remdesivir 08/07, dexamethsone 6 mg Q day 08/07 and received convalescent plasma 08/08/2020 08/11/20 11:33 Patient requiring continuous BiPAP 12/6 95% for 24 hours. Currently sturations 94-95%. She is talking and following commands. Does not feel like she can take BiPAP off. CXR with diffuse interstitailand alveolar infiltrates unchanged from 08/08/2020. 08/12/20 10:45 Patient requiring continuous BiPAP 12/6 100% for 48 hours. Currently saturations 93%. She is talking and following commands. Will try off BiPAP later today. Review of Systems Constitutional: Constitutional: Denies chills, Reports lethargy and Reports weakness Eyes: Eyes: Reports no additional eye complaints ENT: Reports system reviewed and no additional complaints, except as documented Cardiovascular: Cardiovascular: Denies chest pain, Denies palpitations and Reports dyspnea Respiratory: Respiratory: Reports cough and Reports dyspnea Gastrointestinal: Gastrointestinal: Reports no additional gastrointestinal complaints Genitourinary: Genitourinary: Reports no additional female genitourinary complaints Neurologic: Reports system reviewed and no additional complaints, except as documented, Reports confusion and Reports weakness Psychiatric: Psychiatric: Reports confusion Endocrine: Endocrine: Denies palpitations Exam Const: General: no acute distress and confusion Orientation/consciousness: confusion Other: cooperative currenlty Eyes: General: appearance normal, both eyes and all related structures Neck: Neck: no JVD Resp: Auscultation: crackles Other: bilat crackles; decreased breath sounds in the bases; Cardio: Rate: tachycardic Rhythm: abnormal rhythm regularly irregular Other: atrial fib GI: Auscultation: normal bowel sounds : Other: Sena Urinary Catheter: Urinary Catheter: patent and draining Skin: General skin exam: normal color Other: no cyanosis Neuro: General: confusion Extrem: General: normal to inspection and abnormal gait
--- NOTE | 2020-08-12 11:45 | PC.NURSE ---
Patient refuses to follow any commands from me or Lizabeth REYES. We attempted to remove the BiPap so the patient could attempt to eat lunch and her SpO2 dropped to 76%. We repeatedly asked her to take some deep breaths through her nose in order for her SpO2 to come back up so she could, but patient would not follow any commands. She continued to have a poor attitude and just shrug her shoulders. BiPap was reapplied after the patient had eaten one bite and was given some water. Will continue to monitor.
[2020-08-12] MEDS: PANTOPRAZOLE SODIUM IV 40 MG VIAL IV PUSH (12:41)
--- NOTE | 2020-08-12 16:23 | PM.IMPN ---
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, 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 and requiring 15 L of oxygen, patient was started on dexamethasone on 08/07 11/15, and Remdesivir 08/07 11/10, convalescent plasma is ordered for the patient as patient is more hypoxic on BIPAP, receiving Fio2 100%, also on 08/08/2020 patient went into atrial fibrillation with RVR is a new onset, patient was seen by Sample Worker, started patient on IV metoprolol 5mg q6, rate was trending down, Patient CHADS2-Vasc is 1 and full dose aspirin would be acceptable, Patient with COVID has high of clots, was started on Lovenox 1mg/kg q12, on 08/09/20 patient was seen by fur tinter and started patient on amiodoran drip as HR remains elevated however patient refused amiodoran, today patient pt HR is still above 100 and fur tinter discussed with patient and risk of refusing the medication and worsening cardiomyopathy and CHF, patient will complete Remdisivir 5 day course today d/w way inspector will extend Remdesivir for another 5 days and and continue dexamethasone a total of 10 day, patient is seen by way inspector and agrees with plan, patient seen by Cardiology patient does not want to take amiodarone, increase the beta-kurtis and added digoxin for rate control. Today 1/ patient still requiring BiPAP 100% oxygen unable to take the BiPAP off as patient desaturates in 80s, patient is encouraged to prone ventilation however patient is morbidly obese and with breast cancer unable to lay on her stomach, her heart rate remains above 100 patient will be seen by fur tinter and further recommendation to, will continue dexamethasone /10 and Remdesivir /[address] by [address] inspector and further recommendation to follow. (2) Suspected COVID-19 virus infection: Code(s): Z20.828 - Contact with and (suspected) exposure to other viral communicable diseases Status: Acute Assessment and Plan: plan is above (3) Bilateral pneumonia: Code(s): J18.9 - Pneumonia, unspecified organism Status: Acute Assessment and Plan: Most likely viral COVID pneumonia (4) Gastroesophageal reflux disease: Code(s): K21.9 - Gastro-esophageal reflux disease without esophagitis Status: Inactive Assessment and Plan: Will continue PPI (5) Hypothyroidism: Code(s): E03.9 - Hypothyroidism, unspecified Status: Acute Assessment and Plan: home regimen (6) Confusion: Code(s): R41.0 - Disorientation, unspecified Status: Acute Assessment and Plan: Patient clinically stable currently Subjective Date/time seen: 08/12/20 16:23 Patient is a 60-year-old female presented to emergency department with complaint cough shortness of breath patient was diagnosed COVID-19 does not remember when exactly she was exposed, 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, 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 and requiring 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 of oxygen, patient was started on dexamethasone on 08/07 11/15, and Remdesivir 08/07 11/10, convalescent plasma is ordered for the patient as patient is more hypoxic on BIPAP, receiving Fio2 100%, also on 08/08/2020 patient went into atrial fibrillation with RVR is a new onset, patient was seen by Sample Worker, started patient on IV metoprolol 5mg q6, rate was trending down, Patient CHADS2-Vasc is 1 and full dose aspirin would be acceptable, Patient with COVID has high of clots, was started on Lovenox 1mg/kg q12, on 08/09/20 patient was seen by fur tinter and started patient on amiodoran drip as HR remains elevated however rohan
[2020-08-12 17:50] LABS: Alveolar/Arterial O2 Gradient 468.1 mmHg; Base Excess ABG 0.3 mEq/l (+/-2.0); Fractional Inspired Oxygen 80 %; HCO3 ABG 25.1 mEq/l (22.0-26.0); Oxygen Content ABG 17.2 %vol (16.0-22.0); Oxygen Saturation ABG 90.8 % (95.0-100.0); Oxyhemoglobin 88.7 % THb (90.0-100.0); PCO2 ABG 41.1 mmHg (35.0-45.0); PO2 ABG 59.2 mmHg (80.0-100.0); PO2 FiO2 Ratio Arterial Blood 0.74 %; Total Hemoglobin 13.8 g/dL (12.0-18.0); pH ABG 7.403 (7.350-7.450)
[2020-08-12 17:51] LABS: Device NON-INVASIVE VENT; Modified Allen's Test Pass; Non-Invasive Expiratory Pressure 6 CMH2O; Non-Invasive Inspiratory Pressure 12 CMH2O; Non-Invasive Vent Rate 12 /MIN; Site Drawn RIGHT RADIAL
[2020-08-12] MEDS: REMDESIVIR 100 MG/NS 250 ML 100 MG/250 ML BAG 250 MG IVPB (21:19)
[2020-08-12] MEDS: MELATONIN 5 MG TABLET PO (21:19)
[2020-08-13] VITALS (28 sets, daily range): BP systolic 126–146; BP diastolic 76–95; PULSE 114–138; RESP 22–30; TEMP 36.3–36.9; O2SAT 91–96; BMI 43.0
[2020-08-13 01:34] LABS: Alveolar/Arterial O2 Gradient 608.6 mmHg; Base Excess ABG 1.6 mEq/l (+/-2.0); Carboxyhemoglobin 0.3 % THb (0-2.0); Fractional Inspired Oxygen 100 %; HCO3 ABG 25.6 mEq/l (22.0-26.0); Methemoglobin ABG 0.3 %THb (0-1.5); Oxygen Content ABG 18.5 %vol (16.0-22.0); Oxygen Saturation ABG 93.8 % (95.0-100.0); Oxyhemoglobin 91.6 % THb (90.0-100.0); PCO2 ABG 38.5 mmHg (35.0-45.0); PO2 ABG 65.9 mmHg (80.0-100.0); PO2 FiO2 Ratio Arterial Blood 0.66 %; Reduced Hemoglobin 7.8 %THb (0-5.0); Total Hemoglobin 14.4 g/dL (12.0-18.0); pH ABG 7.441 (7.350-7.450)
[2020-08-13 01:35] LABS: Device NON-INVASIVE VENT; Modified Allen's Test Pass; Non-Invasive Expiratory Pressure 10 CMH2O; Non-Invasive Inspiratory Pressure 20 CMH2O; Non-Invasive Vent Rate 12 /MIN; Site Drawn LEFT RADIAL
[2020-08-13] MEDS: METOPROLOL TARTRATE INJ 5 MG/5 ML VIAL 10 MG IV PUSH ×5 (01:38→19:12)
[2020-08-13] MEDS: ALBUTEROL SULFATE NEB 2.5 MG/0.5 ML INH INHALATION ×5 (03:52→23:51)
[2020-08-13] MEDS: IPRATROPIUM BR 0.02% INH SOLN 0.5 MG/2.5 ML VIAL INHALATION ×5 (03:52→23:51)
[2020-08-13] MEDS: LEVOTHYROXINE SODIUM 75 MCG TABLET PO (06:15)
[2020-08-13 09:09] LABS: Basophils Percent Auto 0.2 % (0.2-1.2); Eosinophils Percent Auto 0.2 % (0-4.4); Hemoglobin 13.6 g/dL (12.0-15.0); Immature Granulocyte Absolute 0.14 K/mm3 (0.00-0.031); Immature Granulocyte Percent A 1.2 % (0-0.5); Lymphocytes Absolute Auto 0.51 K/mm3 (0.9-3.2); Lymphocytes Percent Auto 4.4 % (18.3-44.2); Mean Corpuscular HGB Conc 32.4 g/dl (32-36); Mean Corpuscular Hemoglobin 30.4 pg (26-34); Mean Corpuscular Volume 93.8 fl (80-100); Mean Platelet Volume 10.4 fl (7.4-10.4); Monocytes Absolute Auto 0.2 K/mm3 (0.1-0.6); Monocytes Percent Auto 1.5 % (2.6-8.5); Neutrophils Absolute Auto 10.8 K/mm3 (1.3-6.7); Neutrophils Percent Auto 92.5 % (45.5-73.1); Platelet Count Result 325 k/mm3 (150-375); Red Blood Count 4.48 M/mm3 (4.2-5.4); Red Cell Distribution Width 13.2 % (11.5-14.5); White Blood Count 11.7 K/mm3 (4.5-10.0)
[2020-08-13] MEDS: ENOXAPARIN 120 MG/0.8 ML SYRINGE 115 MG SUB-Q ×2 (09:30→21:00)
[2020-08-13] MEDS: PANTOPRAZOLE SODIUM IV 40 MG VIAL IV PUSH (09:30)
[2020-08-13] MEDS: DEXAMETHASONE SOD PHOS INJ 4 MG/ML VIAL 6 MG IV PUSH (09:30)
--- NOTE | 2020-08-13 13:05 | PM.PNPUL ---
Progress Note: A&P Assessment and Plan (1) COVID-19: Code(s): U07.1 - COVID-19 Status: Acute Assessment and Plan: COVID 19 pneumonia with ARDS. Worsening oxygenation from admit on 08/06 and now requires BiPAP for last 48 hours. S/P remdesivir, dexamethasone 08/07 and convalescent plasma 08/08. 08/11 Patient requiring continuous BiPAP 12/6 95% for 24 hours. Currently sturations 94-95%. She is talking and following commands. Does not feel like she can take BiPAP off. CXR with diffuse interstitailand alveolar infiltrates unchanged from 08/08/2020. Requires high FIO2 and BiPAp but at least her CXR is stable and she has not deteriorated in last 24 hours. 08/12/20 Patient requiring continuous BiPAP 12/6 100% for 48 hours. Currently saturations 93%. She is talking and following commands. Will try off BiPAP later today. Failed off BiPAP 08/13 Worsening with desats last night now on BiPAP 20/10 and 100% despite remdesivier, dexamethasone, convalescent plasma. Referred to [place] for possible ECMO made by auto inspection specialist. Spoke with auto inspection specialist here and transfere once bed available. Continue remdesivir and dexamethasone for total 10 days. Attempt prone ventilation if possible but limited by body habitus and left sided breast cancer in past. No evidence of fluid overload, new pneumonia and on full dose lovenox for AFib. I spoke to her about her wishes and she wishes for full resuscitation. Improved sleep with melatonin 5 mg and trazodone 50 mg. (2) Acute respiratory failure with hypoxia: Code(s): J96.01 - Acute respiratory failure with hypoxia Status: Acute Assessment and Plan: 08/11 Patient requiring continuous BiPAP 12/6 95% for 24 hours. Wean FIO2 for sats > 90%. 08/12 Patient requiring continuous BiPAP 12/6 now at 100% and on BiPAP for 48 hours. Wean FIO2 for sats > 90%. 08/12 BiPAP 20/10 at 100% continuous (3) Atrial fibrillation with rapid ventricular response: Code(s): I48.91 - Unspecified atrial fibrillation Status: Acute Assessment and Plan: Managed by cardiology. Metoprolol increased 10 Q 4 on 08/12. Agree with no amiodarone for now given lung injury from COVID-19. Subjective Date/time seen: Subjective Date/time seen: Date/time seen: COVID 19 pneumonia with ARDS started remdesivir 08/07, dexamethsone 6 mg Q day 08/07 and received convalescent plasma 08/08/2020 08/11/20 11:33 Patient requiring continuous BiPAP 12/6 95% for 24 hours. Currently sturations 94-95%. She is talking and following commands. Does not feel like she can take BiPAP off. CXR with diffuse interstitailand alveolar infiltrates unchanged from 08/08/2020. 08/12/20 10:45 Patient requiring continuous BiPAP 12/6 100% for 48 hours. Currently saturations 93%. She is talking and following commands. Will try off BiPAP later today.08/13/20. 08/13 Worsening oxygenation with desats last night and now required BiPAP 20/10 and 100%. On BiPAP for 72 hours. CXR with stable bilateral diffuse infiltrates. Hospitalist Spoke with Roselyn regarding transfer. Refuses dobbhoff for nutrition. Remains alert and communicative. Review of Systems Review of Systems: All systems reviewed & are unremarkable except as noted in HPI and below Eyes: Eyes: Reports no additional eye complaints ENT: Reports system reviewed and no additional complaints, except as documented and Reports sinus pressure Cardiovascular: Cardiovascular: Reports no additional cardiovascular complaints Respiratory: Respiratory: Reports cough and Reports dyspnea Gastrointestinal: Gastrointestinal: Reports no additional gastrointestinal complaints Musculoskeletal: Musculoskeletal: Reports no additional musculoskeletal complaints Integumentary/Breasts: Skin/Breast: Reports system reviewed and no additional complaints, except as docu Neurologic: Reports syst
[2020-08-13 13:43] LABS: CRP 13.6 mg/dL (<1.0)
[2020-08-13 14:51] LABS: Alanine Aminotransferase 23 U/L (4-35); Albumin Level 2.9 g/dL (3.5-5.1); Alkaline Phosphatase 124 U/L (38-126); Anion Gap 8 mmol/L (8-16); Aspartate Amino Transferase 41 U/L (14-36); Bilirubin,Total 0.8 mg/dL (0.2-1.3); Blood Urea Nitrogen 20 mg/dL (7-17); Calcium 8.7 mg/dL (8.4-10.2); Carbon Dioxide 25 mmol/L (22-30); Chloride 101 mmol/L (98-107); Estimated CRCL calculation 106 ml/min; Estimated Glomerular Filt Rate > 60; Glucose 137 mg/dL (65-105); Potassium 5.1 mmol/L (3.4-5.0); Sodium 134 mmol/L (137-145)
--- NOTE | 2020-08-13 14:58 | PM.PNCARD ---
Progress Note: A&P Assessment and Plan (1) Atrial fibrillation with rapid ventricular response: Code(s): I48.91 - Unspecified atrial fibrillation Status: Acute Assessment and Plan: New onset this admission in setting of COVID-19 infection with bilateral pneumonia and hypoxic respiratory failure. No prior known history, patient unaware heart rate 120-150 beats per minute. CHADS2 Vasc score 1. Technically, ASA 325 mg daily acceptable, however, unclear if patient may require cardioversion in near future. Enoxaparin 1 milligram/kilogram subcutaneous q.12 hours. Patient still refuses amiodarone. Will start some oral metoprolol 25 mg p.o. q.8 hours. DC IV metoprolol. Can use some IV push metoprolol as needed if heart rate is significantly elevated continue anticoagulation (2) COVID-19: Code(s): U07.1 - COVID-19 Status: Acute Assessment and Plan: Per primary service. Complicated by COVID pneumonia with extensive bilateral infiltrates Patient remains hypoxic despite non-rebreather. Serious concern for further deterioration of respiratory status requiring intubation mechanical ventilatory support. Remdesivir and dexamethasone have been ordered by primary service. (3) Acute respiratory failure with hypoxia: Code(s): J96.01 - Acute respiratory failure with hypoxia Status: Acute Assessment and Plan: Secondary to COVID-19 pneumonia. Still on BiPAP. (4) Hypothyroidism: Code(s): E03.9 - Hypothyroidism, unspecified Status: Acute Assessment and Plan: Stable TSH 0.927 Subjective Date/time seen: 08/13/20 14:58 Interval history: Follow-up visit in this 60-year-old woman with: [place] virus pneumonia and concurrent atrial fibrillation with RVR Date of service 08/13/2020: No chest pain but obvious shortness of breath. No palpitations Review of Systems Review of Systems: All systems reviewed & are unremarkable except as noted in HPI and below Constitutional: Constitutional: Reports as per HPI, Reports no additional constitutional complaints, Reports difficulty sleeping, Reports fatigue and Reports weakness Eyes: Eyes: Reports as per HPI and Reports no additional eye complaints ENT: Reports system reviewed and no additional complaints, except as documented and Reports as per HPI Cardiovascular: Cardiovascular: Reports as per HPI, Reports no additional cardiovascular complaints, Denies chest pain, Denies diaphoresis, Denies pedal edema, Denies leg edema, Reports lightheadedness, Denies palpitations, Reports dyspnea and Reports dyspnea on exertion Respiratory: Respiratory: Reports as per HPI, Reports no additional respiratory complaints, Reports cough, Reports dyspnea, Reports dyspnea on exertion and Denies wheezing Gastrointestinal: Gastrointestinal: Reports as per HPI, Reports no additional gastrointestinal complaints, Denies abdominal pain, Denies melena, Denies bloating and Denies hematochezia Genitourinary: Genitourinary: Reports as per HPI, Denies hematuria and Denies dysuria Musculoskeletal: Musculoskeletal: Reports no additional musculoskeletal complaints, Reports as per HPI and Reports myalgias Integumentary/Breasts: Skin/Breast: Reports system reviewed and no additional complaints, except as docu and Reports as per HPI Neurologic: Reports system reviewed and no additional complaints, except as documented, Reports as per HPI, Reports confusion and Reports weakness Psychiatric: Psychiatric: Reports no additional psychiatric complaints, Reports as per HPI and Reports confusion Endocrine: Endocrine: Reports no additional endocrine complaints, Reports as per HPI, Reports fatigue and Denies palpitations Hematologic/Lymphatic: Hematologic/Lymphatic: Reports no additional hematologic/lymphatic complaints, Reports as per HPI, Denies easy bleeding and Denies easy bruising Allergic/Immunologic: Allergic/Immunologic: Reports no additional allergic/immunolo
--- NOTE | 2020-08-13 16:53 | PM.IMPN ---
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 of oxygen, patient was started on dexamethasone on 08/07 11/15, and Remdesivir 08/07 11/10, convalescent plasma is ordered for the patient as patient is more hypoxic on BIPAP, receiving Fio2 100%, also on 08/08/2020 patient went into atrial fibrillation with RVR is a new onset, patient was seen by Molded Goods Spot Picker, started patient on IV metoprolol 5mg q6, rate was trending down, Patient CHADS2-Vasc is 1 and full dose aspirin would be acceptable, Patient with COVID has high of clots, was started on Lovenox 1mg/kg q12, on 08/09/20 patient was seen by second language tutor and started patient on amiodoran drip as HR remains elevated however patient refused amiodoran, today patient pt HR is still above 100 and second language tutor discussed with patient and risk of refusing the medication and worsening cardiomyopathy and CHF, patient will complete Remdisivir 5 day course today d/w relief man will extend Remdesivir for another 5 days and and continue dexamethasone a total of 10 day, patient is seen by relief man and agrees with plan, patient seen by Cardiology patient does not want to take amiodarone, increase the beta-kurtis and added digoxin for rate control. on 08/12 patient still requiring BiPAP 100% oxygen unable to take the BiPAP off as patient desaturates in 80s, patient is encouraged to prone ventilation however patient is morbidly obese and with breast cancer unable to lay on her stomach, her heart rate remains above 100 patient will be seen by second language tutor and further recommendation to, will continue dexamethasone 01/15 and Remdesivir 01/15 patient is seen by relief man and further recommendation to follow. today patient still requiring constant BiPAP patient was seen by relief man recommending to transfer the patient to [facility] for ECMO treatment, I spoke with Dr. Fajardo substance abuse specialist patient BMI is high further treatment, , the patient continued to be on BiPAP on 100% FiO2 patient will need to be intubated, I spoke with patient's brother who will also discussed with the patient to cooperate in terms of her treatment and taking her medication as given, and following instruction for prone ventilation. Patient seen by relief man and further recommendation to (2) Suspected COVID-19 virus infection: Code(s): Z20.828 - Contact with and (suspected) exposure to other viral communicable diseases Status: Acute Assessment and Plan: plan is above (3) Bilateral pneumonia: Code(s): J18.9 - Pneumonia, unspecified organism Status: Acute Assessment and Plan: Most likely viral COVID pneumonia (4) Gastroesophageal reflux disease: Code(s): K21.9 - Gastro-esophageal reflux disease without esophagitis Status: Inactive Assessment and Plan: Will continue PPI (5) Hypothyroidism: Code(s): E03.9 - Hypothyroidism, unspecified Status: Acute Assessment and Plan: home regimen (6) Confusion: Code(s): R41.0 - Disorientation, unspecified Status: Acute Assessment and Plan: Patient clinically stable currently Subjective Date/time seen: 08/13/20 16:53 Patient is a 60-year-old female presented to emergency department with complaint cough shortness of breath patient was diagnosed COVID-19 does not remember when exactly she was exposed, 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
[2020-08-13 17:41] LABS: Glucose Point of Care 143 (65-105)
[2020-08-13] MEDS: METOPROLOL TARTRATE 25 MG TABLET PO (19:12)
[2020-08-13] MEDS: MELATONIN 5 MG TABLET PO (20:59)
[2020-08-13] MEDS: REMDESIVIR 100 MG/NS 250 ML 100 MG/250 ML BAG 250 MG IVPB (20:59)
[2020-08-14] VITALS (27 sets, daily range): BP systolic 135–161; BP diastolic 61–101; PULSE 101–142; RESP 22–32; TEMP 36.1–37.1; O2SAT 90–98
--- NOTE | 2020-08-14 | ECHO_ITS ---
Patient Info Name: Julieta Mancuso Age: 60 years : 1960 Gender: Female Ht: 64 in Wt: 255 lbs BSA: 2.35 m2 HR: 113 bpm BP: 161 / 92 mmHg Heart Rhythm: Atrial Fibrillation Technical Quality: Good Exam Date: 08/14/2020 12:22 PM Exam Location: [facility] Patient Status: Inpatient Admit Date: 08/06/2020 Staff Ordering Physician: Omar Manzo MD Scheduler Maintenance: Jcarlos Monge, RAMON, RT Attending Provider: Terrie Yoon MD Referring Physician: Anais LO; Exam Type: CA echo doppler color flow Study Info Indications I48.1 - Persistent atrial fibrillation Complete two-dimensional, color flow and Doppler transthoracic echocardiogram is performed. Summary 1. Complete two-dimensional, color flow and Doppler transthoracic echocardiogram is performed. 2. Left ventricular chamber dimension is normal. 3. Left ventricular systolic function is hyperdynamic, estimated at >70%. 4. There is mildly increased left ventricular wall thickness. 5. The left ventricular diastolic function is indeterminate. 6. There is mild aortic valve sclerosis. 7. There is mild pulmonic regurgitation. Left Ventricle Left ventricular chamber dimension is normal. Left ventricular systolic function is hyperdynamic, estimated at >70%. There is mildly increased left ventricular wall thickness. The left ventricular diastolic function is indeterminate. Right Ventricle Right ventricular chamber dimension is normal. Right ventricular systolic function is normal. Left Atria Left atrial chamber dimension is normal. Right Atria Right atrial chamber dimension is normal. Atrial Septum Intact interatrial septum visualized by color flow imaging. Aortic Valve The aortic valve is trileaflet. There is mild aortic valve sclerosis. There is no aortic valve stenosis. There is trace aortic valve regurgitation. Pulmonic Valve The pulmonic valve is normal. There is no pulmonic valve stenosis. There is mild pulmonic regurgitation. Mitral Valve The mitral valve has calcified annulus. There is no mitral valve stenosis. There is trace mitral valve regurgitation. Tricuspid Valve The tricuspid valve leaflets are normal. There is no significant tricuspid valve stenosis. There is trace tricuspid valve regurgitation. Pericardium/Pleural The pericardium appears normal. There is trivial pericardial effusion. Inferior Vena Cava Normal inferior vena cava with >50% collapse upon inspiration consistent with normal right atrial pressure, 5 mmHg. Aorta The aortic root size at the sinus of Valsalva is normal. The prox ascending aorta size is normal. Left Ventricular Outflow Tract Name Value Normal LVOT 2D LVOT Diameter 2.0 cm LVOT Doppler LVOT Peak Gradient 3 mmHg LVOT Mean Gradient 1 mmHg LVOT VTI 17 cm LVOT VTI/AV VTI Ratio 0.8 LVOT Stroke Volume 51 ml LVOT CO 6.7 l/min LVOT CI 2.8
[2020-08-14] MEDS: METOPROLOL TARTRATE 25 MG TABLET PO ×3 (00:44→12:09)
[2020-08-14 02:20] LABS: Alveolar/Arterial O2 Gradient 609.5 mmHg; Base Excess ABG 1.5 mEq/l (+/-2.0); Fractional Inspired Oxygen 100 %; HCO3 ABG 25.6 mEq/l (22.0-26.0); Oxygen Content ABG 17.2 %vol (16.0-22.0); Oxygen Saturation ABG 93.4 % (95.0-100.0); Oxyhemoglobin 91.1 % THb (90.0-100.0); PCO2 ABG 38.7 mmHg (35.0-45.0); PO2 ABG 64.8 mmHg (80.0-100.0); PO2 FiO2 Ratio Arterial Blood 0.65 %; Total Hemoglobin 13.4 g/dL (12.0-18.0); pH ABG 7.439 (7.350-7.450)
[2020-08-14 02:22] LABS: Device NON-INVASIVE VENT; Site Drawn RIGHT BRACHIAL
[2020-08-14 02:23] LABS: Non-Invasive Expiratory Pressure 10 CMH2O; Non-Invasive Inspiratory Pressure 20 CMH2O; Non-Invasive Vent Rate 12 /MIN
[2020-08-14] MEDS: LEVOTHYROXINE SODIUM 75 MCG TABLET PO (06:05)
[2020-08-14] MEDS: IPRATROPIUM BR 0.02% INH SOLN 0.5 MG/2.5 ML VIAL INHALATION ×3 (08:18→20:52)
[2020-08-14] MEDS: LEVALBUTEROL NEB 1.25 MG/3 ML 0.63 MG INHALATION ×3 (08:18→20:52)
[2020-08-14 09:20] LABS: Basophils Percent Auto 0.1 % (0.2-1.2); Eosinophils Percent Auto 0.2 % (0-4.4); Hematocrit 38.8 % (37.0-47.0); Immature Granulocyte Absolute 0.18 K/mm3 (0.00-0.031); Immature Granulocyte Percent A 1.7 % (0-0.5); Lymphocytes Absolute Auto 0.48 K/mm3 (0.9-3.2); Lymphocytes Percent Auto 4.5 % (18.3-44.2); Mean Corpuscular HGB Conc 33.5 g/dl (32-36); Mean Corpuscular Hemoglobin 30.7 pg (26-34); Mean Corpuscular Volume 91.7 fl (80-100); Mean Platelet Volume 11.1 fl (7.4-10.4); Monocytes Absolute Auto 0.2 K/mm3 (0.1-0.6); Neutrophils Absolute Auto 9.8 K/mm3 (1.3-6.7); Neutrophils Percent Auto 91.5 % (45.5-73.1); Platelet Count Result 310 k/mm3 (150-375); Red Blood Count 4.23 M/mm3 (4.2-5.4); Red Cell Distribution Width 13.2 % (11.5-14.5); White Blood Count 10.7 K/mm3 (4.5-10.0)
[2020-08-14 09:51] LABS: Alanine Aminotransferase 22 U/L (4-35); Albumin Level 2.9 g/dL (3.5-5.1); Alkaline Phosphatase 138 U/L (38-126); Anion Gap 6 mmol/L (8-16); Aspartate Amino Transferase 36 U/L (14-36); Bilirubin,Total 0.7 mg/dL (0.2-1.3); Blood Urea Nitrogen 20 mg/dL (7-17); CRP 7.8 mg/dL (<1.0); Calcium 8.7 mg/dL (8.4-10.2); Carbon Dioxide 30 mmol/L (22-30); Chloride 98 mmol/L (98-107); Estimated CRCL calculation 107 ml/min; Estimated Glomerular Filt Rate > 60; Glucose 117 mg/dL (65-105); Potassium 4.7 mmol/L (3.4-5.0); Sodium 134 mmol/L (137-145)
[2020-08-14] MEDS: DEXAMETHASONE SOD PHOS INJ 4 MG/ML VIAL 6 MG IV PUSH (10:01)
[2020-08-14] MEDS: ENOXAPARIN 120 MG/0.8 ML SYRINGE 115 MG SUB-Q ×2 (10:01→21:15)
[2020-08-14] MEDS: ERGOCALCIFEROL 50,000 UNIT CAPSULE 50000 UNITS PO (10:02)
[2020-08-14] MEDS: PANTOPRAZOLE SODIUM IV 40 MG VIAL IV PUSH (10:02)
--- NOTE | 2020-08-14 11:33 | PM.PNPUL ---
Progress Note: A&P Assessment and Plan (1) COVID-19: Code(s): U07.1 - COVID-19 Status: Acute Assessment and Plan: COVID 19 pneumonia with ARDS. Worsening oxygenation from admit on 08/06 and now requires BiPAP for last 48 hours. S/P remdesivir, dexamethasone 08/07 and convalescent plasma 08/08. 08/11 Patient requiring continuous BiPAP 12/6 95% for 24 hours. Currently sturations 94-95%. She is talking and following commands. Does not feel like she can take BiPAP off. CXR with diffuse interstitailand alveolar infiltrates unchanged from 08/08/2020. Requires high FIO2 and BiPAp but at least her CXR is stable and she has not deteriorated in last 24 hours. 08/12/20 Patient requiring continuous BiPAP 12/6 100% for 48 hours. Currently saturations 93%. She is talking and following commands. Will try off BiPAP later today. Failed off BiPAP 08/13 Worsening with desats last night now on BiPAP 20/10 and 100% despite remdesivier, dexamethasone, convalescent plasma. Referred to [place] for possible ECMO made by dicer operator. Spoke with dicer operator here and transfere once bed available. Continue remdesivir and dexamethasone for total 10 days. Attempt prone ventilation if possible but limited by body habitus and left sided breast cancer in past. No evidence of fluid overload, new pneumonia and on full dose lovenox for AFib. I spoke to her about her wishes and she wishes for full resuscitation. 08/14 Periodic desaturation events. on BiPAP 20/10 100% ABG 7.44/39/65 and I have changed to 15/8 95% with sats 96% currently. Desats to 92% with briefly off BiPAP for medication. Wean FIO2 as tolerated for sats > 90%. To complete 10 days remdesivir and dexamethasone. Improved sleep with melatonin 5 mg and trazodone 50 mg. (2) Acute respiratory failure with hypoxia: Code(s): J96.01 - Acute respiratory failure with hypoxia Status: Acute Assessment and Plan: 08/11 Patient requiring continuous BiPAP 12/6 95% for 24 hours. Wean FIO2 for sats > 90%. 08/12 Patient requiring continuous BiPAP 12/6 now at 100% and on BiPAP for 48 hours. Wean FIO2 for sats > 90%. 08/13 BiPAP 20/10 at 100% continuous 08/14 BiPAP 15/8, 95% (3) Atrial fibrillation with rapid ventricular response: Code(s): I48.91 - Unspecified atrial fibrillation Status: Acute Assessment and Plan: Managed by cardiology. Metoprolol increased 10 Q 4 on 08/12. Changed to PO now. Agree with no amiodarone for now given lung injury from COVID-19. Subjective Date/time seen: COVID 19 pneumonia with ARDS started remdesivir 08/07, dexamethsone 6 mg Q day 08/07 and received convalescent plasma 08/08/2020 08/11/20 11:33 Patient requiring continuous BiPAP 12/6 95% for 24 hours. Currently sturations 94-95%. She is talking and following commands. Does not feel like she can take BiPAP off. CXR with diffuse interstitailand alveolar infiltrates unchanged from 08/08/2020. 08/12/20 10:45 Patient requiring continuous BiPAP 12/6 100% for 48 hours. Currently saturations 93%. She is talking and following commands. Will try off BiPAP later today.08/13/20. 08/13 Worsening oxygenation with desats last night and now required BiPAP 20/10 and 100%. On BiPAP for 72 hours. CXR with stable bilateral diffuse infiltrates. Hospitalist Spoke with Roselyn regarding transfer. Refuses dobbhoff for nutrition. Remains alert and communicative. Had one ensure. 08/14/20 11:33 Patient sitting with one leg off bed, appears more comfortable, on BiPAP 20/10 100% ABG 7.44/39/65 and I have changed to 15/8 95% with sats 96% currently. Desats to 92% with briefly off BiPAP for medication. Review of Systems Review of Systems: All systems reviewed & are unremarkable except as noted in HPI and below Eyes: Eyes: Reports no additional eye complaints ENT: Reports system reviewed and no additional comp
--- NOTE | 2020-08-14 11:44 | PM.PNCARD ---
Progress Note: A&P Assessment and Plan (1) Atrial fibrillation with rapid ventricular response: Code(s): I48.91 - Unspecified atrial fibrillation Status: Acute Assessment and Plan: New onset this admission in setting of COVID-19 infection with bilateral pneumonia and hypoxic respiratory failure. No prior known history, patient unaware heart rate 120-150 beats per minute. CHADS2 Vasc score 1. Technically, ASA 325 mg daily acceptable, however, unclear if patient may require cardioversion in near future. Enoxaparin 1 milligram/kilogram subcutaneous q.12 hours. Patient has agreed to the echocardiogram. Will reorder the echo with Doppler to assess her EF. If her ejection fraction is normal I will either increase her metoprolol or transition her to IV diltiazem. If her ejection fraction is reduced, will either increase of metoprolol plus/minus add amiodarone if she is willing. Continue anticoagulation (2) COVID-19: Code(s): U07.1 - COVID-19 Status: Acute Assessment and Plan: Per primary service. Complicated by COVID pneumonia with extensive bilateral infiltrates Patient remains hypoxic despite non-rebreather. Serious concern for further deterioration of respiratory status requiring intubation mechanical ventilatory support. Remdesivir and dexamethasone have been ordered by primary service. (3) Acute respiratory failure with hypoxia: Code(s): J96.01 - Acute respiratory failure with hypoxia Status: Acute Assessment and Plan: Secondary to COVID-19 pneumonia. Still on BiPAP. (4) Hypothyroidism: Code(s): E03.9 - Hypothyroidism, unspecified Status: Acute Assessment and Plan: Stable TSH 0.927 Subjective Date/time seen: 08/14/20 11:44 Interval history: Follow-up visit in this 60-year-old woman with: [place] virus pneumonia and concurrent atrial fibrillation with RVR Date of service 08/14/2020: No chest pain but obvious shortness of breath. No palpitations. Feels a little better. Review of Systems Review of Systems: All systems reviewed & are unremarkable except as noted in HPI and below Constitutional: Constitutional: Reports as per HPI, Reports no additional constitutional complaints, Reports difficulty sleeping, Reports fatigue and Reports weakness Eyes: Eyes: Reports as per HPI and Reports no additional eye complaints ENT: Reports system reviewed and no additional complaints, except as documented and Reports as per HPI Cardiovascular: Cardiovascular: Reports as per HPI, Reports no additional cardiovascular complaints, Denies chest pain, Denies diaphoresis, Denies pedal edema, Denies leg edema, Reports lightheadedness, Denies palpitations, Reports dyspnea and Reports dyspnea on exertion Respiratory: Respiratory: Reports as per HPI, Reports no additional respiratory complaints, Reports cough, Reports dyspnea, Reports dyspnea on exertion and Denies wheezing Gastrointestinal: Gastrointestinal: Reports as per HPI, Reports no additional gastrointestinal complaints, Denies abdominal pain, Denies melena, Denies bloating and Denies hematochezia Genitourinary: Genitourinary: Reports as per HPI, Denies hematuria and Denies dysuria Musculoskeletal: Musculoskeletal: Reports no additional musculoskeletal complaints, Reports as per HPI and Reports myalgias Integumentary/Breasts: Skin/Breast: Reports system reviewed and no additional complaints, except as docu and Reports as per HPI Neurologic: Reports system reviewed and no additional complaints, except as documented, Reports as per HPI, Reports confusion and Reports weakness Psychiatric: Psychiatric: Reports no additional psychiatric complaints, Reports as per HPI and Reports confusion Endocrine: Endocrine: Reports no additional endocrine complaints, Reports as per HPI, Reports fatigue and Denies palpitations Hematologic/Lymphatic: Hematologic/Lymphatic: Reports no additional hematologic/lymphatic compla
--- NOTE | 2020-08-14 14:26 | PCDIET ---
Nutrition Follow-Up Complete: Nutrition Diagnosis: Suboptimal oral intake related to COVID pneumonia as evidenced by MD order for supplements. Nutrition Goal: Patient to meet estimated nutritional needs. Goal not met. Patient with minimal intake. Remains on bipap. Recommend liberalized (regular) diet, as tolerated, with continuation of Ensure Enlive TID. Patient reportedly refused Dobhoff placement. If limited nutrition continues and patient continues to refuse feeding tube placement, will need to consider parenteral nutrition. Last recorded weight is 116 kg which is increased from last review. +I/O. Bowel Motility: Last documented BM on 08/12/20. Labs Reviewed: WBC (10.7), Glu (117), BUN (20), Cr (0.6), Na (134), Alb (2.9) Meds Noted: Lopressor, Decadron, Lovenox, Protonix, Drisdol, Atrovent, Xopenex, Synthroid, Remdesivir Additional Notes: No documented skin breakdown. Will continue to monitor with same goal. Nutrition Monitoring and Evaluation: Follow up every 5 days.
[2020-08-14] MEDS: SODIUM CHLORIDE 0.9% IV 1,000 ML 50 ML IV CONT (17:00)
--- NOTE | 2020-08-14 18:35 | PM.IMPN ---
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, 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 and requiring 15 L of oxygen, patient was started on dexamethasone on 08/07 11/15, and Remdesivir 08/07 11/10, convalescent plasma is ordered for the patient as patient is more hypoxic on BIPAP, receiving Fio2 100%, also on 08/08/2020 patient went into atrial fibrillation with RVR is a new onset, patient was seen by [facility], started patient on IV metoprolol 5mg q6, rate was trending down, Patient CHADS2-Vasc is 1 and full dose aspirin would be acceptable, Patient with COVID has high of clots, was started on Lovenox 1mg/kg q12, on 08/09/20 patient was seen by hand shaper and started patient on amiodoran drip as HR remains elevated however patient refused amiodoran, today patient pt HR is still above 100 and hand shaper discussed with patient and risk of refusing the medication and worsening cardiomyopathy and CHF, patient will complete Remdisivir 5 day course today d/w clammer will extend Remdesivir for another 5 days and and continue dexamethasone a total of 10 day, patient is seen by clammer and agrees with plan, patient seen by Cardiology patient does not want to take amiodarone, increase the beta-kurtis and added digoxin for rate control. on 08/12 patient still requiring BiPAP 100% oxygen unable to take the BiPAP off as patient desaturates in 80s, patient is encouraged to prone ventilation however patient is morbidly obese and with breast cancer unable to lay on her stomach, her heart rate remains above 100 patient will be seen by hand shaper and further recommendation to, will continue dexamethasone 01/15 and Remdesivir 01/15 patient is seen by clammer and further recommendation to follow. on 08/13 patient still requiring constant BiPAP patient was seen by clammer recommending to transfer the patient to [facility] for ECMO treatment, I spoke with Dr. Fajardo [facility] patient BMI is high further treatment, , the patient continued to be on BiPAP on 100% FiO2 patient will need to be intubated, I spoke with patient's brother who will also discussed with the patient to cooperate in terms of her treatment and taking her medication as given, and following instruction for prone ventilation. 08/14 today patient still remains on BiPAP however she is requiring less oxygen FiO2 90% compared 100% yesterday, patient in better spirit today and cooperative, her heart rate still elevated seen by cardiology cardiac echo was ordered, will continue dexamethasone for 10 days and Remdesivir for 10 days, will continue to wean patient off BiPAP will continue to monitor the patient and further recommendation to follow (2) Suspected COVID-19 virus infection: Code(s): Z20.828 - Contact with and (suspected) exposure to other viral communicable diseases Status: Acute Assessment and Plan: plan is above (3) Bilateral pneumonia: Code(s): J18.9 - Pneumonia, unspecified organism Status: Acute Assessment and Plan: Most likely viral COVID pneumonia (4) Gastroesophageal reflux disease: Code(s): K21.9 - Gastro-esophageal reflux disease without esophagitis Status: Inactive Assessment and Plan: Will continue PPI (5) Hypothyroidism: Code(s): E03.9 - Hypothyroidism, unspecified Status: Acute Assessment and Plan: home regimen (6) Confusion: Code(s): R41.0 - Disorientation, unspecified Status: Acute Assessment and Plan: Patient clinically stable currently Subjective Date/time seen:
[2020-08-14] MEDS: REMDESIVIR 100 MG/NS 250 ML 100 MG/250 ML BAG 250 MG IVPB (21:14)
[2020-08-14] MEDS: CENTRAL LINE FLUSH 10 ML IV PUSH (21:15)
[2020-08-14] MEDS: MELATONIN 5 MG TABLET PO (21:15)
[2020-08-15] VITALS (26 sets, daily range): BP systolic 117–150; BP diastolic 64–99; PULSE 81–135; RESP 22–29; TEMP 36.1–36.7; O2SAT 76–95
[2020-08-15] MEDS: LEVALBUTEROL NEB 1.25 MG/3 ML 0.63 MG INHALATION ×4 (02:23→20:54)
[2020-08-15] MEDS: IPRATROPIUM BR 0.02% INH SOLN 0.5 MG/2.5 ML VIAL INHALATION ×4 (02:23→20:52)
--- NOTE | 2020-08-15 04:21 | PC.NURSE ---
[facility] CALLED FOR UPDATE OF VITALS AND O2 OF PATIENT AND STATED THAT THEY WILL UPDATE US ON WHEN A BED WILL BECOME AVAILABLE.
[2020-08-15 05:05] LABS: Basophils Percent Auto 0.2 % (0.2-1.2); Hemoglobin 11.7 g/dL (12.0-15.0); Immature Granulocyte Absolute 0.21 K/mm3 (0.00-0.031); Immature Granulocyte Percent A 1.9 % (0-0.5); Lymphocytes Absolute Auto 0.43 K/mm3 (0.9-3.2); Lymphocytes Percent Auto 3.9 % (18.3-44.2); Mean Corpuscular HGB Conc 31.6 g/dl (32-36); Mean Corpuscular Hemoglobin 29.1 pg (26-34); Mean Platelet Volume 10.8 fl (7.4-10.4); Monocytes Absolute Auto 0.4 K/mm3 (0.1-0.6); Monocytes Percent Auto 3.2 % (2.6-8.5); Neutrophils Absolute Auto 10.1 K/mm3 (1.3-6.7); Neutrophils Percent Auto 90.8 % (45.5-73.1); Platelet Count Result 259 k/mm3 (150-375); Red Blood Count 4.02 M/mm3 (4.2-5.4); White Blood Count 11.1 K/mm3 (4.5-10.0)
[2020-08-15 05:23] LABS: Alanine Aminotransferase 21 U/L (4-35); Albumin Level 2.7 g/dL (3.5-5.1); Alkaline Phosphatase 149 U/L (38-126); Anion Gap 8 mmol/L (8-16); Aspartate Amino Transferase 38 U/L (14-36); Bilirubin,Total 0.6 mg/dL (0.2-1.3); Blood Urea Nitrogen 16 mg/dL (7-17); CRP 5.4 mg/dL (<1.0); Calcium 8.2 mg/dL (8.4-10.2); Carbon Dioxide 28 mmol/L (22-30); Chloride 97 mmol/L (98-107); Estimated CRCL calculation 107 ml/min; Estimated Glomerular Filt Rate > 60; Glucose 168 mg/dL (65-105); Potassium 4.3 mmol/L (3.4-5.0); Sodium 133 mmol/L (137-145)
[2020-08-15] MEDS: CENTRAL LINE FLUSH 10 ML IV PUSH ×3 (06:43→20:18)
[2020-08-15] MEDS: LEVOTHYROXINE SODIUM 75 MCG TABLET PO (06:43)
[2020-08-15] MEDS: PANTOPRAZOLE SODIUM IV 40 MG VIAL IV PUSH (08:59)
[2020-08-15] MEDS: ENOXAPARIN 120 MG/0.8 ML SYRINGE 115 MG SUB-Q ×2 (08:59→20:18)
[2020-08-15] MEDS: DEXAMETHASONE SOD PHOS INJ 4 MG/ML VIAL 6 MG IV PUSH (08:59)
--- NOTE | 2020-08-15 09:45 | PM.PNPUL ---
Progress Note: A&P Assessment and Plan (1) COVID-19: Code(s): U07.1 - COVID-19 Status: Acute Assessment and Plan: COVID 19 pneumonia with ARDS. Worsening oxygenation from admit on 08/06 and now requires BiPAP for last 48 hours. S/P remdesivir, dexamethasone 08/07 and convalescent plasma 08/08. 08/11 Patient requiring continuous BiPAP 12/6 95% for 24 hours. Currently sturations 94-95%. She is talking and following commands. Does not feel like she can take BiPAP off. CXR with diffuse interstitailand alveolar infiltrates unchanged from 08/08/2020. Requires high FIO2 and BiPAp but at least her CXR is stable and she has not deteriorated in last 24 hours. 08/12/20 Patient requiring continuous BiPAP 12/6 100% for 48 hours. Currently saturations 93%. She is talking and following commands. Will try off BiPAP later today. Failed off BiPAP 08/13 Worsening with desats last night now on BiPAP 20/10 and 100% despite remdesivier, dexamethasone, convalescent plasma. Referred to [place] for possible ECMO made by tow motor operator. Spoke with tow motor operator here and transfere once bed available. Continue remdesivir and dexamethasone for total 10 days. Attempt prone ventilation if possible but limited by body habitus and left sided breast cancer in past. No evidence of fluid overload, new pneumonia and on full dose lovenox for AFib. I spoke to her about her wishes and she wishes for full resuscitation. 08/14/20 11:33 Patient sitting with one leg off bed, appears more comfortable, on BiPAP 20/10 100% ABG 7.44/39/65 and I have changed to 15/8 95% with sats 96% currently. Desats to 92% with briefly off BiPAP for medication. Required increased to 100% later in day. post PICC CXR with continued alveolar and interstial infiltrates, no change 08/15/20 09:45 Remains on BiPAP 15/8 on 100% with sats 94% currently. States she feels stronger but remains with severe hypoxia. (2) Acute respiratory failure with hypoxia: Code(s): J96.01 - Acute respiratory failure with hypoxia Status: Acute Assessment and Plan: 08/11 Patient requiring continuous BiPAP 12/6 95% for 24 hours. Wean FIO2 for sats > 90%. 08/12 Patient requiring continuous BiPAP 12/6 now at 100% and on BiPAP for 48 hours. Wean FIO2 for sats > 90%. 08/13 BiPAP 20/10 at 100% continuous 08/14 BiPAP 15/8, 95% 1/ BiPAP 15/8, 100% (3) Atrial fibrillation with rapid ventricular response: Code(s): I48.91 - Unspecified atrial fibrillation Status: Acute Assessment and Plan: Managed by cardiology. Metoprolol PO now. Full dose lovenox. Agree with no amiodarone for now given lung injury from COVID-19. Subjective Date/time seen: COVID 19 pneumonia with ARDS started remdesivir 08/07, dexamethsone 6 mg Q day 08/07 and received convalescent plasma 08/08/2020 08/11/20 11:33 Patient requiring continuous BiPAP 12/6 95% for 24 hours. Currently sturations 94-95%. She is talking and following commands. Does not feel like she can take BiPAP off. CXR with diffuse interstitailand alveolar infiltrates unchanged from 08/08/2020. 08/12/20 10:45 Patient requiring continuous BiPAP 12/6 100% for 48 hours. Currently saturations 93%. She is talking and following commands. Will try off BiPAP later today.08/13/20. 08/13 Worsening oxygenation with desats last night and now required BiPAP 20/10 and 100%. On BiPAP for 72 hours. CXR with stable bilateral diffuse infiltrates. Hospitalist Spoke with Roselyn regarding transfer. Refuses dobbhoff for nutrition. Remains alert and communicative. Had one ensure. 08/14/20 11:33 Patient sitting with one leg off bed, appears more comfortable, on BiPAP 27/05 100% ABG 7.44/39/65 and I have changed to 15 95% with sats 96% currently. Desats to 92% with briefly off BiPAP for medication. Required increased to 100% later in day. post PICC CXR with continued alve
[2020-08-15] MEDS: SODIUM CHLORIDE 0.9% IV 1,000 ML 50 ML IV CONT (12:25)
--- NOTE | 2020-08-15 13:14 | PM.PNCARD ---
Progress Note: A&P Assessment and Plan (1) Atrial fibrillation with rapid ventricular response: Code(s): I48.91 - Unspecified atrial fibrillation Status: Acute Assessment and Plan: New onset this admission in setting of COVID-19 infection with bilateral pneumonia and hypoxic respiratory failure. No prior known history, patient unaware heart rate 120-150 beats per minute. CHADS2 Vasc score 1. Technically, ASA 325 mg daily acceptable, however, unclear if patient may require cardioversion in near future. Enoxaparin 1 milligram/kilogram subcutaneous q.12 hours. Will increase her diltiazem drip to 15 mL/hour. Also give a dose oral metoprolol 25 mg x1 now to evaluate response. Continue anticoagulation. She is reconsidering antiarrhythmic therapy (2) COVID-19: Code(s): U07.1 - COVID-19 Status: Acute Assessment and Plan: Per primary service. Complicated by COVID pneumonia with extensive bilateral infiltrates Patient remains hypoxic despite non-rebreather. Serious concern for further deterioration of respiratory status requiring intubation mechanical ventilatory support. Remdesivir and dexamethasone have been ordered by primary service. (3) Acute respiratory failure with hypoxia: Code(s): J96.01 - Acute respiratory failure with hypoxia Status: Acute Assessment and Plan: Secondary to COVID-19 pneumonia. Still on BiPAP. (4) Hypothyroidism: Code(s): E03.9 - Hypothyroidism, unspecified Status: Acute Assessment and Plan: Stable TSH 0.927 Subjective Date/time seen: 08/15/20 13:14 Interval history: Follow-up visit in this 60-year-old woman with: [place] virus pneumonia and concurrent atrial fibrillation with RVR Date of service 08/15/2020: No chest pain but obvious shortness of breath. No palpitations. Feels about the same today. Review of Systems Review of Systems: All systems reviewed & are unremarkable except as noted in HPI and below Constitutional: Constitutional: Reports as per HPI, Reports no additional constitutional complaints, Reports difficulty sleeping, Reports fatigue and Reports weakness Eyes: Eyes: Reports as per HPI and Reports no additional eye complaints ENT: Reports system reviewed and no additional complaints, except as documented and Reports as per HPI Cardiovascular: Cardiovascular: Reports as per HPI, Reports no additional cardiovascular complaints, Denies chest pain, Denies diaphoresis, Denies pedal edema, Denies leg edema, Reports lightheadedness, Denies palpitations, Reports dyspnea and Reports dyspnea on exertion Respiratory: Respiratory: Reports as per HPI, Reports no additional respiratory complaints, Reports cough, Reports dyspnea, Reports dyspnea on exertion and Denies wheezing Gastrointestinal: Gastrointestinal: Reports as per HPI, Reports no additional gastrointestinal complaints, Denies abdominal pain, Denies melena, Denies bloating and Denies hematochezia Genitourinary: Genitourinary: Reports as per HPI, Denies hematuria and Denies dysuria Musculoskeletal: Musculoskeletal: Reports no additional musculoskeletal complaints, Reports as per HPI and Reports myalgias Integumentary/Breasts: Skin/Breast: Reports system reviewed and no additional complaints, except as docu and Reports as per HPI Neurologic: Reports system reviewed and no additional complaints, except as documented, Reports as per HPI, Reports confusion and Reports weakness Psychiatric: Psychiatric: Reports no additional psychiatric complaints, Reports as per HPI and Reports confusion Endocrine: Endocrine: Reports no additional endocrine complaints, Reports as per HPI, Reports fatigue and Denies palpitations Hematologic/Lymphatic: Hematologic/Lymphatic: Reports no additional hematologic/lymphatic complaints, Reports as per HPI, Denies easy bleeding and Denies easy bruising Allergic/Immunologic: Allergic/Immunologic: Reports no additional allergic/immunol
[2020-08-15] MEDS: METOPROLOL TARTRATE 25 MG TABLET PO (14:24)
--- NOTE | 2020-08-15 16:07 | PM.IMPN ---
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, 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 and requiring 15 L of oxygen, patient was started on dexamethasone on 08/07 11/15, and Remdesivir 08/07 11/10, convalescent plasma is ordered for the patient as patient is more hypoxic on BIPAP, receiving Fio2 100%, also on 08/08/2020 patient went into atrial fibrillation with RVR is a new onset, patient was seen by Ship Carpenter, started patient on IV metoprolol 5mg q6, rate was trending down, Patient CHADS2-Vasc is 1 and full dose aspirin would be acceptable, Patient with COVID has high of clots, was started on Lovenox 1mg/kg q12, on 08/09/20 patient was seen by it business analyst and started patient on amiodoran drip as HR remains elevated however patient refused amiodoran, today patient pt HR is still above 100 and it business analyst discussed with patient and risk of refusing the medication and worsening cardiomyopathy and CHF, patient will complete Remdisivir 5 day course today d/w sole edge inker machine will extend Remdesivir for another 5 days and and continue dexamethasone a total of 10 day, patient is seen by sole edge inker machine and agrees with plan, patient seen by Cardiology patient does not want to take amiodarone, increase the beta-kurtis and added digoxin for rate control. on 08/12 patient still requiring BiPAP 100% oxygen unable to take the BiPAP off as patient desaturates in 80s, patient is encouraged to prone ventilation however patient is morbidly obese and with breast cancer unable to lay on her stomach, her heart rate remains above 100 patient will be seen by it business analyst and further recommendation to, will continue dexamethasone 01/15 and Remdesivir 01/15 patient is seen by sole edge inker machine and further recommendation to follow. on 08/13 patient still requiring constant BiPAP patient was seen by sole edge inker machine recommending to transfer the patient to [facility] for ECMO treatment, I spoke with Dr. Fajardo sales and service specialist patient BMI is high further treatment, , the patient continued to be on BiPAP on 100% FiO2 patient will need to be intubated, I spoke with patient's brother who will also discussed with the patient to cooperate in terms of her treatment and taking her medication as given, and following instruction for prone ventilation. 08/14 today patient still remains on BiPAP however she is requiring less oxygen FiO2 90% compared 100% yesterday, patient in better spirit today and cooperative, her heart rate still elevated seen by cardiology cardiac echo was ordered, will continue dexamethasone for 10 days and Remdesivir for 10 days, will continue to wean patient off BiPAP will continue to monitor the patient and further recommendation to follow 08/15 today patient is on BIPAP however FIO2 is 80% and does not appear in any distress, on dexamethasone 04/17 and Remdesivir 04/17, patient will complete 10 days course of both medications tomorrow. will continue to monitor, will continue to wean patient off BIPAP, patient is seen by pulmonogist and further recommendation to follow. (2) Suspected COVID-19 virus infection: Code(s): Z20.828 - Contact with and (suspected) exposure to other viral communicable diseases Status: Acute Assessment and Plan: plan is above (3) Bilateral pneumonia: Code(s): J18.9 - Pneumonia, unspecified organism Status: Acute Assessment and Plan: Most likely viral COVID pneumonia (4) Gastroesophageal reflux disease: Code(s): K21.9 - Gastro-esophageal reflux disease without esophagitis Status: Inactive Assessment and Plan: Will lola
[2020-08-15] MEDS: REMDESIVIR 100 MG/NS 250 ML 100 MG/250 ML BAG 250 MG IVPB (20:16)
[2020-08-15] MEDS: MELATONIN 5 MG TABLET PO (20:18)
[2020-08-16] VITALS (7 sets, daily range): BP systolic 146–148; BP diastolic 79–97; PULSE 103–131; RESP 26–30; TEMP 36.2–36.4; O2SAT 85–87
[2020-08-16] MEDS: IPRATROPIUM BR 0.02% INH SOLN 0.5 MG/2.5 ML VIAL INHALATION (03:33)
[2020-08-16] MEDS: LEVALBUTEROL NEB 1.25 MG/3 ML 0.63 MG INHALATION (03:33)
[2020-08-16] MEDS: LORazepam INJ (*CRX) 2 MG/ML VIAL 0.5 MG IV PUSH (04:49)
--- NOTE | 2020-08-16 07:51 | PM.TDS ---
Transfer Discharge Sum: Prov Provider Date of admission: 08/06/20 14:30 Primary care physician: Agustin Cox, Admitting clinician: Terrie Yoon MD Consults: 08/07/20 09:34 Consult to Physician Routine Comment: SPOKE WITH DR. BLAIR Consulting Provider: Pedro Blair financial dealers/MD group to consult: [facility] Reason for consultation: worsening COVID-19 Has provider been notified: Yes 08/08/20 07:53 Consult to Physician Routine Comment: EXCHANGE NOTIFIED OF CONSULT Consulting Provider: Cj Naranjo financial dealers/MD group to consult: [employer] Mason Reason for consultation: New onset A.Fib Has provider been notified: Yes DS: Admitting Diagnosis Admitting Diagnosis Admitting Diagnosis: Chief Complaint: Shortness of breath. <Jennifer Connelly PA-C - Last Filed: 08/06/20 23:12> Narrative: Julieta Mancuso is a 60-year-old female with hypothyroidism and GERD who presented to the emergency department earlier today via private vehicle from home with complaints of worsening shortness of breath. At the time my evaluation she is a bit confused and slow to respond but from what I can gather she has not been feeling well for at least a week with symptoms to include cough, congestion, shortness of breath, fever, chills, arthralgias, myalgias, headache, nausea, vomiting, and diarrhea. It sounds as though she has been home in bed for many days, not eating much or drinking and taking acetaminophen and ibuprofen for her symptoms. Her brother has been coming to check on her and has encouraged her to come to the hospital last couple of days however she has refused up until today. On arrival to the emergency department her SpO2 was 75% on room air, skin was reportedly mottled, and her chest x-ray showed pretty extensive bilateral lung disease yet she tells me she was not feeling short of breath. 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 She does not believe she has been using adequate PPE as she typically wears just a surgical mass while working at that facility. 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 and requiring 15 L of oxygen, patient was started on dexamethasone on 08/07 11/15, and Remdesivir 08/07 11/10, convalescent plasma is ordered for the patient as patient is more hypoxic on BIPAP, receiving Fio2 100%, also on 08/08/2020 patient went into atrial fibrillation with RVR is a new onset, patient was seen by Cinder Block Mason, started patient on IV metoprolol 5mg q6, rate was trending down, Patient CHADS2-Vasc is 1 and full dose aspirin would be acceptable, Patient with COVID has high of clots, was started on Lovenox 1mg/kg q12, on 08/09/20 patient was seen by sleeping bag filler and started patient on amiodoran drip as HR remains elevated however patient refused amiodoran, today patient pt HR is still above 100 and sleeping bag filler discussed with patient and risk of refusing the medication and worsening cardiomyopathy and CHF, patient will complete Remdisivir 5 day course today d/w park services specialist will extend Remdesivir for another 5 days and and continue dexamethasone a total of 10 day, patient is seen by park services specialist and agrees with plan, patient seen by Cardiology patient does not want to take amiodarone, increase the beta-kurtis and added digoxin for rate control. on 08/12 patient still requiring BiPAP 100% oxygen unable to take the BiPAP
== END 2020-08-16 06:50 | disposition short-term general hospital (02) | DRG 177 ==
LOC: ANHED 12:15 → ANHIMU 15:04
PROVIDERS: Internal Medicine; Physician Assistant; Student in an Organized Health Care Education/Training Program; Admitting Provider Family Medicine; Emergency Provider Emergency Medicine; PCP Family Medicine; Visit Provider Family Medicine
DX: U07.1 COVID-19 (principal); J12.82 Pneumonia due to coronavirus disease 2019; J96.01 Acute respiratory failure with hypoxia; Z68.41 Body mass index [BMI] 40.0-44.9, adult; E66.01 Morbid (severe) obesity due to excess calories; I48.91 Unspecified atrial fibrillation; R41.0 Disorientation, unspecified; K21.9 Gastro-esophageal reflux disease without esophagitis; E03.9 Hypothyroidism, unspecified; L90.0 Lichen sclerosus et atrophicus; I34.1 Nonrheumatic mitral (valve) prolapse; Z79.899 Other long term (current) drug therapy; Z87.891 Personal history of nicotine dependence; Z85.3 Personal history of malignant neoplasm of breast
CPT/HCPCS: 36415; 36430; 36569; 36600; 71045; 80053; 81001; 82375; 82550; 82728; 82805; 83050; 83605; 83615; 83735; 83880; 84443; 84460; 85025; 85027; 85610; 85730; 86140; 86900; 86901; 87040; 87635; 93005; 93306; 94002; 94003; 94640; 94660; 96365; 96375; 99285; A9270; C1751; C9113; C9803; J0131; J0456; J0696; J1100; J1160; J1650; J1940; J2060; J7030; J7050; P9059; U0003